=== PATIENT | female | born 1940 | race Caucasian/White ===

== ENCOUNTER → 2023-05-16 11:44 | Outpatient (REF) | payer OTHER, SELFPAY ==
[2023-05-16 12:51] LABS: % Basophils 0.6 % (0-2); % Eosinophils 4.7 % (0-6); % Immature Granulocytes 0.4 % (0-0.5); % Monocytes 9.1 % (1.7-9.3); % Neutrophils 62.2 % (42.2-75.2); Absolute Eosinophils 0.3 10^3/uL (0-0.7); Absolute Lymphocytes 1.6 10^3/uL (1.2-3.4); Absolute Monocytes 0.6 10^3/uL (0.1-0.6); Absolute Neutrophils 4.4 10^3/uL (1.4-6.5); Hematocrit 38.8 % (37.0-47.0); Hemoglobin 12.6 g/dL (12.0-16.0); Mean Corp Hgb Conc. 32.5 g/dL (33.0-37.0); Mean Corpuscular Hgb 30.4 pg (27.0-31.0); Mean Corpuscular Volume 93.5 fL (81.0-99.0); Mean Platelet Volume 10.1 fL (7.4-10.4); Nucleated Red Blood Cells % 0 %; Platelet Count 182 10^3/uL (130-400); Red Blood Cell Count 4.15 10^6/uL (4.20-5.40); Red Cell Dist. Width 17.1 % (11.5-14.5)
[2023-05-16 13:11] LABS: NT-proBNP 3040 pg/ml
[2023-05-16 13:24] LABS: ALT (SGPT) 23 U/L (0-35); AST (SGOT) 28 U/L (14-36); Albumin 3.9 g/dl (3.5-5.0); Alkaline Phosphatase 136 U/L (38-126); Blood Urea Nitrogen 61 mg/dl (7-17); Calcium 10.8 mg/dl (8.4-10.2); Carbon Dioxide 30 mmol/L (22-30); Chloride 98 mmol/L (98-107); Glucose 122 mg/dl (70-99); Iron 126 ug/dl (37-170); Potassium 4.9 mmol/L (3.5-5.1); Sodium 135 mmol/L (135-145); Total Bilirubin 0.7 mg/dl (0.2-1.3); Total Protein 6.5 g/dl (6.3-8.2); eGFR 22.81
[2023-05-16 13:34] LABS: Percent Saturation 37 % (20-50); Total Iron Binding Capacity 338 ug/dl (265-497)
[2023-05-16 13:53] LABS: Ferritin 24.1 ng/ml (11.1-264.0)
== END ==
LOC: REG 11:44
PROVIDERS: ATTENDING PHYSICIAN Internal Medicine Cardiovascular Disease; FAMILY PHYSICIAN Internal Medicine Geriatric Medicine
DX: I50.23 Acute on chronic systolic (congestive) heart failure (principal); I10 Essential (primary) hypertension; E78.2 Mixed hyperlipidemia; D64.9 Anemia, unspecified
CPT/HCPCS: 36415; 80053; 82728; 83540; 83550; 83880; 85025

== ENCOUNTER → 2023-06-04 12:57 | Outpatient (REF) | payer OTHER, SELFPAY ==
[2023-06-04 13:32] LABS: Ionized Calcium 1.29 mMOL/L (1.15-1.33)
[2023-06-04 13:46] LABS: Blood Urea Nitrogen 44 mg/dl (7-17); Calcium 10.5 mg/dl (8.4-10.2); Carbon Dioxide 32 mmol/L (22-30); Chloride 97 mmol/L (98-107); Glucose 159 mg/dl (70-99); Potassium 4.4 mmol/L (3.5-5.1); Sodium 137 mmol/L (135-145); eGFR 29.39
[2023-06-04 14:02] LABS: Vitamin D, 25-OH*** 54.4 ng/mL (30-80)
[2023-06-05 09:39] LABS: Intact PTH 126.6 pg/ml (13.6-85.8)
== END ==
LOC: REG 12:57
PROVIDERS: ATTENDING PHYSICIAN Internal Medicine Cardiovascular Disease; FAMILY PHYSICIAN Internal Medicine Geriatric Medicine
DX: I10 Essential (primary) hypertension (principal); E78.2 Mixed hyperlipidemia; Z95.0 Presence of cardiac pacemaker; I25.10 Atherosclerotic heart disease of native coronary artery without angina pectoris; E55.9 Vitamin D deficiency, unspecified; Z91.81 History of falling; E03.2 Hypothyroidism due to medicaments and other exogenous substances; N18.30 Chronic kidney disease, stage 3 unspecified; I50.20 Unspecified systolic (congestive) heart failure; Z13.89 Encounter for screening for other disorder; E83.52 Hypercalcemia
CPT/HCPCS: 36415; 80048; 82306; 82330; 83970

== ENCOUNTER → 2023-06-08 16:10 | Outpatient (REF) | payer OTHER, SELFPAY ==
[2023-06-08 18:38] LABS: 24 Hour Urine Total Volume 1900 ml
[2023-06-08 19:37] LABS: 24 Hour Urine Calcium 186.2 mg/day; Urine Calcium 9.8 mg/dl
== END ==
LOC: REG 16:10
PROVIDERS: ATTENDING PHYSICIAN Internal Medicine Geriatric Medicine
DX: E21.3 Hyperparathyroidism, unspecified (principal)
CPT/HCPCS: 81050; 82340

== ENCOUNTER → 2023-09-21 12:09 | Outpatient (REF) | payer OTHER, SELFPAY ==
[2023-09-21 14:01] LABS: ALT (SGPT) 19 U/L (0-35); AST (SGOT) 26 U/L (14-36); Albumin 4.3 g/dl (3.5-5.0); Alkaline Phosphatase 173 U/L (38-126); Blood Urea Nitrogen 44 mg/dl (7-17); Calcium 10.9 mg/dl (8.4-10.2); Carbon Dioxide 29 mmol/L (22-30); Chloride 101 mmol/L (98-107); Glucose 117 mg/dl (70-99); Potassium 4.5 mmol/L (3.5-5.1); Sodium 139 mmol/L (135-145); Total Bilirubin 0.6 mg/dl (0.2-1.3); eGFR 31.41
[2023-09-21 14:03] LABS: NT-proBNP 5010 pg/ml
[2023-09-21 14:17] LABS: Free T4 1.52 ng/dl (0.78-2.19)
[2023-09-22 11:59] LABS: Thyroglobulin Antibodies <0.9 IU/mL (0.0-4.0); Thyroid Peroxidase Ab (TPO) 0.7 IU/mL (0.0-9.0)
== END ==
LOC: REG 12:09
PROVIDERS: ATTENDING PHYSICIAN Internal Medicine Cardiovascular Disease; FAMILY PHYSICIAN Internal Medicine Geriatric Medicine
DX: I10 Essential (primary) hypertension (principal); E78.2 Mixed hyperlipidemia; Z95.0 Presence of cardiac pacemaker; I49.3 Ventricular premature depolarization; E55.9 Vitamin D deficiency, unspecified; Z91.81 History of falling; E03.2 Hypothyroidism due to medicaments and other exogenous substances; N18.30 Chronic kidney disease, stage 3 unspecified; I50.20 Unspecified systolic (congestive) heart failure; E83.52 Hypercalcemia; E05.90 Thyrotoxicosis, unspecified without thyrotoxic crisis or storm; R06.09 Other forms of dyspnea; I50.23 Acute on chronic systolic (congestive) heart failure
CPT/HCPCS: 36415; 80053; 83880; 84439; 84443; 86376; 86800

== ENCOUNTER → 2023-10-01 12:29 | Outpatient (REF) | payer OTHER, SELFPAY ==
[2023-10-01 13:53] LABS: Blood Urea Nitrogen 43 mg/dl (7-17); Calcium 10.3 mg/dl (8.4-10.2); Carbon Dioxide 31 mmol/L (22-30); Chloride 101 mmol/L (98-107); Glucose 157 mg/dl (70-99); Potassium 4.6 mmol/L (3.5-5.1); Sodium 140 mmol/L (135-145); eGFR 36.87
[2023-10-01 13:57] LABS: NT-proBNP 4800 pg/ml
== END ==
LOC: REG 12:29
PROVIDERS: ATTENDING PHYSICIAN Internal Medicine Cardiovascular Disease; FAMILY PHYSICIAN Internal Medicine Geriatric Medicine
DX: I50.22 Chronic systolic (congestive) heart failure (principal); I10 Essential (primary) hypertension
CPT/HCPCS: 36415; 80048; 83880

== ENCOUNTER → 2023-10-31 13:24 | Outpatient (REF) | payer OTHER, SELFPAY | LOC: RAD 13:24 | PROVIDERS: ATTENDING PHYSICIAN Internal Medicine Endocrinology, Diabetes & Metabolism; FAMILY PHYSICIAN Internal Medicine Geriatric Medicine | DX: Z13.820 Encounter for screening for osteoporosis (principal); Z78.0 Asymptomatic menopausal state; M85.88 Other specified disorders of bone density and structure, other site | CPT/HCPCS: 77080 ==

== ENCOUNTER → 2023-11-06 08:42 | Outpatient (REF) | payer OTHER, SELFPAY | LOC: RAD 08:42 | PROVIDERS: ATTENDING PHYSICIAN Internal Medicine Endocrinology, Diabetes & Metabolism; FAMILY PHYSICIAN Internal Medicine Geriatric Medicine; REFERRING PHYSICIAN Internal Medicine Cardiovascular Disease | DX: E21.0 Primary hyperparathyroidism (principal) | CPT/HCPCS: 78071; A9500 ==

== ENCOUNTER → 2023-11-12 10:40 | Outpatient (REF) | payer OTHER, SELFPAY ==
[2023-11-12 12:17] LABS: Vitamin D, 25-OH*** 63.5 ng/mL (30-80)
[2023-11-12 13:44] LABS: ALT (SGPT) 22 U/L (0-35); AST (SGOT) 30 U/L (14-36); Albumin 4.2 g/dl (3.5-5.0); Alkaline Phosphatase 149 U/L (38-126); Blood Urea Nitrogen 43 mg/dl (7-17); Calcium 10.4 mg/dl (8.4-10.2); Carbon Dioxide 30 mmol/L (22-30); Chloride 102 mmol/L (98-107); Glucose 124 mg/dl (70-99); Potassium 4.4 mmol/L (3.5-5.1); Sodium 138 mmol/L (135-145); Total Bilirubin 0.6 mg/dl (0.2-1.3); Total Protein 6.6 g/dl (6.3-8.2); eGFR 36.87
[2023-11-13 16:14] LABS: Intact PTH 47.6 pg/ml (13.6-85.8)
== END ==
LOC: REG 10:40
PROVIDERS: ATTENDING PHYSICIAN Internal Medicine Endocrinology, Diabetes & Metabolism; FAMILY PHYSICIAN Internal Medicine Geriatric Medicine
DX: E21.0 Primary hyperparathyroidism (principal); R79.89 Other specified abnormal findings of blood chemistry
CPT/HCPCS: 36415; 80053; 82306; 82330; 83970

== ENCOUNTER → 2023-11-20 10:53 | Outpatient (REF) | payer OTHER, SELFPAY | LOC: RAD 10:53 | PROVIDERS: ATTENDING PHYSICIAN Internal Medicine Endocrinology, Diabetes & Metabolism; FAMILY PHYSICIAN Internal Medicine Geriatric Medicine; REFERRING PHYSICIAN Internal Medicine Cardiovascular Disease | DX: E21.0 Primary hyperparathyroidism (principal) | CPT/HCPCS: 76536 ==

== ENCOUNTER → 2023-12-21 12:57 | Outpatient (REF) | payer OTHER, SELFPAY | LOC: RAD 12:57 | PROVIDERS: ATTENDING PHYSICIAN Nurse Practitioner Family; FAMILY PHYSICIAN Internal Medicine Geriatric Medicine | DX: M79.605 Pain in left leg (principal); W19.XXXA Unspecified fall, initial encounter | CPT/HCPCS: 73590; 73610 ==

== ENCOUNTER → 2024-01-21 12:55 | Outpatient (REF) | payer OTHER, SELFPAY | LOC: RCS 12:55 | PROVIDERS: ATTENDING PHYSICIAN Internal Medicine Cardiovascular Disease; FAMILY PHYSICIAN Internal Medicine Geriatric Medicine | DX: I50.20 Unspecified systolic (congestive) heart failure (principal) | CPT/HCPCS: 93306 ==

== ENCOUNTER → 2024-02-05 13:56 | Outpatient (REF) | payer OTHER, SELFPAY ==
[2024-02-05 17:07] LABS: NT-proBNP 3060 pg/ml
[2024-02-05 17:16] LABS: Blood Urea Nitrogen 60 mg/dl (7-17); Carbon Dioxide 26 mmol/L (22-30); Chloride 100 mmol/L (98-107); Glucose 149 mg/dl (70-99); HDL Cholesterol 66 mg/dl; LDL Cholesterol, Calculated 39 mg/dl; Potassium 4.8 mmol/L (3.5-5.1); Sodium 141 mmol/L (135-145); Total Cholesterol 174 mg/dl (50-199); Triglyceride 347 mg/dl (10-149); Very Low Density Lipoprotein 69 mg/dl (0-30); eGFR 33.94
== END ==
LOC: REG 13:56
PROVIDERS: ATTENDING PHYSICIAN Internal Medicine Cardiovascular Disease; FAMILY PHYSICIAN Internal Medicine Geriatric Medicine
DX: I50.22 Chronic systolic (congestive) heart failure (principal); E78.2 Mixed hyperlipidemia
CPT/HCPCS: 36415; 80048; 80061; 83880

== ENCOUNTER → 2024-02-22 11:26 | Outpatient (REF) | payer OTHER, SELFPAY ==
[2024-02-22 13:55] LABS: NT-proBNP 4210 pg/ml
[2024-02-22 14:00] LABS: Blood Urea Nitrogen 35 mg/dl (7-17); Calcium 10.6 mg/dl (8.4-10.2); Carbon Dioxide 32 mmol/L (22-30); Chloride 99 mmol/L (98-107); Glucose 98 mg/dl (70-99); Potassium 4.8 mmol/L (3.5-5.1); Sodium 142 mmol/L (135-145); eGFR 33.94
== END ==
LOC: REG 11:26
PROVIDERS: ATTENDING PHYSICIAN Internal Medicine Cardiovascular Disease; FAMILY PHYSICIAN Internal Medicine Geriatric Medicine
DX: I10 Essential (primary) hypertension (principal); I25.5 Ischemic cardiomyopathy; I50.20 Unspecified systolic (congestive) heart failure
CPT/HCPCS: 36415; 80048; 83880

== ENCOUNTER → 2024-03-25 14:38 | Outpatient (REF) | payer OTHER, SELFPAY ==
[2024-03-25 16:16] LABS: Blood Urea Nitrogen 56 mg/dl (7-17); Calcium 10.5 mg/dl (8.4-10.2); Carbon Dioxide 33 mmol/L (22-30); Chloride 98 mmol/L (98-107); Glucose 103 mg/dl (70-99); Potassium 4.9 mmol/L (3.5-5.1); Sodium 139 mmol/L (135-145); eGFR 31.41
== END ==
LOC: REG 14:38
PROVIDERS: ATTENDING PHYSICIAN Internal Medicine Cardiovascular Disease; FAMILY PHYSICIAN Internal Medicine Geriatric Medicine
DX: I73.9 Peripheral vascular disease, unspecified (principal)
CPT/HCPCS: 36415; 80048

== ENCOUNTER → 2024-04-07 10:25 | Outpatient (REF) | payer OTHER, SELFPAY | LOC: RAD 10:25 | PROVIDERS: ATTENDING PHYSICIAN Internal Medicine Geriatric Medicine | DX: N28.1 Cyst of kidney, acquired (principal) | CPT/HCPCS: 76770 ==

== ENCOUNTER → 2024-04-11 14:53 | Outpatient (REF) | payer OTHER, SELFPAY | LOC: RAD 14:53 | PROVIDERS: ATTENDING PHYSICIAN Internal Medicine Cardiovascular Disease; FAMILY PHYSICIAN Internal Medicine Geriatric Medicine | DX: I73.9 Peripheral vascular disease, unspecified (principal) | CPT/HCPCS: 93922; 93925 ==

== ENCOUNTER → 2024-04-17 08:00 | Outpatient (REF) | payer OTHER, SELFPAY | LOC: WOUND 08:00 | PROVIDERS: ATTENDING PHYSICIAN Surgery; FAMILY PHYSICIAN Internal Medicine Geriatric Medicine | DX: L97.322 Non-pressure chronic ulcer of left ankle with fat layer exposed (principal); I77.6 Arteritis, unspecified; I25.5 Ischemic cardiomyopathy | CPT/HCPCS: 88305; 11104; 11105; 99204 ==

== ENCOUNTER → 2024-04-17 09:00 | Outpatient (REF) | payer OTHER, SELFPAY ==
[2024-04-17 10:44] LABS: Vitamin D, 25-OH*** 40.3 ng/mL (30-80)
[2024-04-17 10:51] LABS: ALT (SGPT) 26 U/L (0-35); AST (SGOT) 32 U/L (14-36); Albumin 4.2 g/dl (3.5-5.0); Alkaline Phosphatase 184 U/L (38-126); Blood Urea Nitrogen 53 mg/dl (7-17); Calcium 10.1 mg/dl (8.4-10.2); Carbon Dioxide 31 mmol/L (22-30); Chloride 98 mmol/L (98-107); Glucose 113 mg/dl (70-99); Potassium 4.3 mmol/L (3.5-5.1); Sodium 137 mmol/L (135-145); Total Bilirubin 0.5 mg/dl (0.2-1.3); Total Protein 6.8 g/dl (6.3-8.2); eGFR 29.21
[2024-04-18 15:16] LABS: Intact PTH 12.8 pg/ml (13.6-85.8)
== END ==
LOC: REG 09:00
PROVIDERS: ATTENDING PHYSICIAN Internal Medicine Endocrinology, Diabetes & Metabolism; FAMILY PHYSICIAN Internal Medicine Geriatric Medicine
DX: E21.0 Primary hyperparathyroidism (principal); R79.89 Other specified abnormal findings of blood chemistry
CPT/HCPCS: 36415; 80053; 82306; 83970

== ENCOUNTER → 2024-04-24 13:16 | Outpatient (REF) | payer OTHER, SELFPAY | LOC: WOUND 13:16 | PROVIDERS: ATTENDING PHYSICIAN Surgery; FAMILY PHYSICIAN Internal Medicine Geriatric Medicine | DX: L97.322 Non-pressure chronic ulcer of left ankle with fat layer exposed (principal); I77.6 Arteritis, unspecified; I25.5 Ischemic cardiomyopathy; L88 Pyoderma gangrenosum | CPT/HCPCS: 11042 ==

== ENCOUNTER → 2024-05-13 14:11 | Outpatient (REF) | payer OTHER, SELFPAY | LOC: WOUND 14:11 | PROVIDERS: ATTENDING PHYSICIAN Surgery; FAMILY PHYSICIAN Internal Medicine Geriatric Medicine | DX: L97.322 Non-pressure chronic ulcer of left ankle with fat layer exposed (principal); L03.116 Cellulitis of left lower limb; I77.6 Arteritis, unspecified; I25.5 Ischemic cardiomyopathy; L88 Pyoderma gangrenosum | CPT/HCPCS: 87070; 87077; 87186; 87205; 99213 ==

== ENCOUNTER → 2024-05-13 14:45 | Outpatient (REF) | payer OTHER, SELFPAY | LOC: CLAB 14:45 | PROVIDERS: ATTENDING PHYSICIAN Surgery | DX: L03.116 Cellulitis of left lower limb (principal); L97.322 Non-pressure chronic ulcer of left ankle with fat layer exposed | CPT/HCPCS: 87070; 87077; 87186; 87205 ==

== ENCOUNTER → 2024-05-20 13:46 | Outpatient (REF) | payer OTHER, SELFPAY | LOC: WOUND 13:46 | PROVIDERS: ATTENDING PHYSICIAN Surgery; FAMILY PHYSICIAN Internal Medicine Geriatric Medicine | DX: L97.322 Non-pressure chronic ulcer of left ankle with fat layer exposed (principal); L03.116 Cellulitis of left lower limb; I25.5 Ischemic cardiomyopathy; L88 Pyoderma gangrenosum | CPT/HCPCS: 11042 ==

== ENCOUNTER → 2024-05-27 13:50 | Outpatient (REF) | payer OTHER, SELFPAY | LOC: WOUND 13:50 | PROVIDERS: ATTENDING PHYSICIAN Surgery; FAMILY PHYSICIAN Internal Medicine Geriatric Medicine | DX: L97.322 Non-pressure chronic ulcer of left ankle with fat layer exposed (principal); L03.116 Cellulitis of left lower limb; I25.5 Ischemic cardiomyopathy; L88 Pyoderma gangrenosum | CPT/HCPCS: 99213 ==

== ENCOUNTER → 2024-06-03 14:15 | Outpatient (REF) | payer OTHER, SELFPAY | LOC: WOUND 14:15 | PROVIDERS: ATTENDING PHYSICIAN Surgery; FAMILY PHYSICIAN Internal Medicine Geriatric Medicine | DX: L97.322 Non-pressure chronic ulcer of left ankle with fat layer exposed (principal); L03.116 Cellulitis of left lower limb; I25.5 Ischemic cardiomyopathy; L88 Pyoderma gangrenosum | CPT/HCPCS: 11042 ==

== ENCOUNTER → 2024-06-17 14:41 | Outpatient (REF) | payer OTHER, SELFPAY | LOC: WOUND 14:41 | PROVIDERS: ATTENDING PHYSICIAN Surgery; FAMILY PHYSICIAN Internal Medicine Geriatric Medicine | DX: L97.322 Non-pressure chronic ulcer of left ankle with fat layer exposed (principal); I25.5 Ischemic cardiomyopathy; G90.522 Complex regional pain syndrome I of left lower limb | CPT/HCPCS: 11042 ==

== ENCOUNTER → 2024-06-24 14:09 | Outpatient (REF) | payer OTHER, SELFPAY | LOC: WOUND 14:09 | PROVIDERS: ATTENDING PHYSICIAN Surgery; FAMILY PHYSICIAN Internal Medicine Geriatric Medicine | DX: L97.322 Non-pressure chronic ulcer of left ankle with fat layer exposed (principal); G90.522 Complex regional pain syndrome I of left lower limb; I25.5 Ischemic cardiomyopathy | CPT/HCPCS: 11042 ==

== ENCOUNTER → 2024-07-01 14:09 | Outpatient (REF) | payer OTHER, SELFPAY | LOC: WOUND 14:09 | PROVIDERS: ATTENDING PHYSICIAN Surgery; FAMILY PHYSICIAN Internal Medicine Geriatric Medicine | DX: L97.322 Non-pressure chronic ulcer of left ankle with fat layer exposed (principal); G90.522 Complex regional pain syndrome I of left lower limb; I25.5 Ischemic cardiomyopathy | CPT/HCPCS: 11042 ==

== ENCOUNTER → 2024-07-07 14:13 | Outpatient (REF) | payer OTHER, SELFPAY | LOC: WOUND 14:13 | PROVIDERS: ATTENDING PHYSICIAN Surgery; FAMILY PHYSICIAN Internal Medicine Geriatric Medicine | DX: L97.322 Non-pressure chronic ulcer of left ankle with fat layer exposed (principal); G90.522 Complex regional pain syndrome I of left lower limb; I25.5 Ischemic cardiomyopathy | CPT/HCPCS: 11042 ==

== ENCOUNTER → 2024-07-14 13:47 | Outpatient (REF) | payer OTHER, SELFPAY | LOC: WOUND 13:47 | PROVIDERS: ATTENDING PHYSICIAN Surgery; FAMILY PHYSICIAN Internal Medicine Geriatric Medicine | DX: L97.322 Non-pressure chronic ulcer of left ankle with fat layer exposed (principal); G90.522 Complex regional pain syndrome I of left lower limb; I25.5 Ischemic cardiomyopathy | CPT/HCPCS: 11042 ==

== ENCOUNTER → 2024-07-18 10:11 | Outpatient (REF) | payer OTHER, SELFPAY | LOC: WOUND 10:11 | PROVIDERS: ATTENDING PHYSICIAN Surgery; FAMILY PHYSICIAN Internal Medicine Geriatric Medicine | DX: L97.322 Non-pressure chronic ulcer of left ankle with fat layer exposed (principal); G90.522 Complex regional pain syndrome I of left lower limb; I25.5 Ischemic cardiomyopathy | CPT/HCPCS: 29581 ==

== ENCOUNTER → 2024-07-21 14:01 | Outpatient (REF) | payer OTHER, SELFPAY | LOC: WOUND 14:01 | PROVIDERS: ATTENDING PHYSICIAN Surgery; FAMILY PHYSICIAN Internal Medicine Geriatric Medicine | DX: L97.322 Non-pressure chronic ulcer of left ankle with fat layer exposed (principal); G90.522 Complex regional pain syndrome I of left lower limb; I25.5 Ischemic cardiomyopathy; I87.2 Venous insufficiency (chronic) (peripheral) | CPT/HCPCS: 11042 ==

== ENCOUNTER → 2024-07-28 10:42 | Outpatient (REF) | payer OTHER, SELFPAY | LOC: WOUND 10:42 | PROVIDERS: ATTENDING PHYSICIAN Surgery; FAMILY PHYSICIAN Internal Medicine Geriatric Medicine | DX: L97.322 Non-pressure chronic ulcer of left ankle with fat layer exposed (principal); G90.522 Complex regional pain syndrome I of left lower limb; I25.5 Ischemic cardiomyopathy; I87.2 Venous insufficiency (chronic) (peripheral) | CPT/HCPCS: 11042 ==

== ENCOUNTER → 2024-08-01 12:55 | Outpatient (REF) | payer OTHER, SELFPAY | LOC: WOUND 12:55 | PROVIDERS: ATTENDING PHYSICIAN Surgery; FAMILY PHYSICIAN Internal Medicine Geriatric Medicine | DX: L97.322 Non-pressure chronic ulcer of left ankle with fat layer exposed (principal); G90.522 Complex regional pain syndrome I of left lower limb; I25.5 Ischemic cardiomyopathy; I87.2 Venous insufficiency (chronic) (peripheral) | CPT/HCPCS: 99212 ==

== ENCOUNTER → 2024-08-01 13:52 | Outpatient (REF) | payer OTHER, SELFPAY | LOC: RAD 13:52 | PROVIDERS: ATTENDING PHYSICIAN Surgery; FAMILY PHYSICIAN Internal Medicine Geriatric Medicine | DX: L97.322 Non-pressure chronic ulcer of left ankle with fat layer exposed (principal) | CPT/HCPCS: 93971 ==

== ENCOUNTER → 2024-08-08 10:15 | Outpatient (REF) | payer OTHER, SELFPAY | LOC: WOUND 10:15 | PROVIDERS: ATTENDING PHYSICIAN Surgery; FAMILY PHYSICIAN Internal Medicine Geriatric Medicine | DX: L97.322 Non-pressure chronic ulcer of left ankle with fat layer exposed (principal); G90.522 Complex regional pain syndrome I of left lower limb; I25.5 Ischemic cardiomyopathy; I87.2 Venous insufficiency (chronic) (peripheral) | CPT/HCPCS: 29580 ==

== ENCOUNTER → 2024-08-11 14:46 | Outpatient (REF) | payer OTHER, SELFPAY | LOC: WOUND 14:46 | PROVIDERS: ATTENDING PHYSICIAN Surgery; FAMILY PHYSICIAN Internal Medicine Geriatric Medicine | DX: L97.322 Non-pressure chronic ulcer of left ankle with fat layer exposed (principal); G90.522 Complex regional pain syndrome I of left lower limb; I25.5 Ischemic cardiomyopathy; I87.2 Venous insufficiency (chronic) (peripheral) | CPT/HCPCS: 11042 ==

== ENCOUNTER → 2024-08-15 13:42 | Outpatient (REF) | payer OTHER, SELFPAY | LOC: WOUND 13:42 | PROVIDERS: ATTENDING PHYSICIAN Surgery; FAMILY PHYSICIAN Internal Medicine Geriatric Medicine | DX: L97.322 Non-pressure chronic ulcer of left ankle with fat layer exposed (principal); G90.522 Complex regional pain syndrome I of left lower limb; I25.5 Ischemic cardiomyopathy; I87.2 Venous insufficiency (chronic) (peripheral) | CPT/HCPCS: 29580 ==

== ENCOUNTER → 2024-08-19 09:39 | Outpatient (REF) | payer OTHER, SELFPAY | LOC: WOUND 09:39 | PROVIDERS: ATTENDING PHYSICIAN Surgery; FAMILY PHYSICIAN Internal Medicine Geriatric Medicine | DX: L97.322 Non-pressure chronic ulcer of left ankle with fat layer exposed (principal); G90.522 Complex regional pain syndrome I of left lower limb; I25.5 Ischemic cardiomyopathy; I87.2 Venous insufficiency (chronic) (peripheral) | CPT/HCPCS: 11042 ==

== ENCOUNTER → 2024-08-22 10:09 | Outpatient (REF) | payer OTHER, SELFPAY | LOC: WOUND 10:09 | PROVIDERS: ATTENDING PHYSICIAN Surgery; FAMILY PHYSICIAN Internal Medicine Geriatric Medicine | DX: L97.322 Non-pressure chronic ulcer of left ankle with fat layer exposed (principal); G90.522 Complex regional pain syndrome I of left lower limb; I25.5 Ischemic cardiomyopathy; I87.2 Venous insufficiency (chronic) (peripheral) | CPT/HCPCS: 29580 ==

== ENCOUNTER → 2024-08-25 14:10 | Outpatient (REF) | payer OTHER, SELFPAY | LOC: WOUND 14:10 | PROVIDERS: ATTENDING PHYSICIAN Surgery; FAMILY PHYSICIAN Internal Medicine Geriatric Medicine | DX: L97.322 Non-pressure chronic ulcer of left ankle with fat layer exposed (principal); G90.522 Complex regional pain syndrome I of left lower limb; I25.5 Ischemic cardiomyopathy; I87.2 Venous insufficiency (chronic) (peripheral) | CPT/HCPCS: 11042 ==

== ENCOUNTER → 2024-08-29 14:15 | Outpatient (REF) | payer OTHER, SELFPAY | LOC: WOUND 14:15 | PROVIDERS: ATTENDING PHYSICIAN Surgery; FAMILY PHYSICIAN Internal Medicine Geriatric Medicine | DX: L97.322 Non-pressure chronic ulcer of left ankle with fat layer exposed (principal); G90.522 Complex regional pain syndrome I of left lower limb; I25.5 Ischemic cardiomyopathy; I87.2 Venous insufficiency (chronic) (peripheral) | CPT/HCPCS: 29580 ==

== ENCOUNTER → 2024-09-05 09:47 | Outpatient (REF) | payer OTHER, SELFPAY | LOC: WOUND 09:47 | PROVIDERS: ATTENDING PHYSICIAN Surgery; FAMILY PHYSICIAN Internal Medicine Geriatric Medicine | DX: L97.322 Non-pressure chronic ulcer of left ankle with fat layer exposed (principal); G90.522 Complex regional pain syndrome I of left lower limb; I25.5 Ischemic cardiomyopathy; I87.2 Venous insufficiency (chronic) (peripheral) | CPT/HCPCS: 11042 ==

== ENCOUNTER → 2024-09-12 13:46 | Outpatient (REF) | payer OTHER, SELFPAY | LOC: WOUND 13:46 | PROVIDERS: ATTENDING PHYSICIAN Surgery; FAMILY PHYSICIAN Internal Medicine Geriatric Medicine | DX: L97.322 Non-pressure chronic ulcer of left ankle with fat layer exposed (principal); G90.522 Complex regional pain syndrome I of left lower limb; I25.5 Ischemic cardiomyopathy; I87.2 Venous insufficiency (chronic) (peripheral) | CPT/HCPCS: 11042 ==

== ENCOUNTER → 2024-09-19 13:21 | Outpatient (REF) | payer OTHER, SELFPAY | LOC: WOUND 13:21 | PROVIDERS: ATTENDING PHYSICIAN Surgery; FAMILY PHYSICIAN Internal Medicine Geriatric Medicine | DX: L97.322 Non-pressure chronic ulcer of left ankle with fat layer exposed (principal); G90.522 Complex regional pain syndrome I of left lower limb; I25.5 Ischemic cardiomyopathy; I87.2 Venous insufficiency (chronic) (peripheral) | CPT/HCPCS: 11042 ==

== ENCOUNTER → 2024-09-26 11:17 | Outpatient (REF) | payer OTHER, SELFPAY | LOC: WOUND 11:17 | PROVIDERS: ATTENDING PHYSICIAN Surgery; FAMILY PHYSICIAN Internal Medicine Geriatric Medicine | DX: L97.322 Non-pressure chronic ulcer of left ankle with fat layer exposed (principal); G90.522 Complex regional pain syndrome I of left lower limb; I25.5 Ischemic cardiomyopathy; I87.2 Venous insufficiency (chronic) (peripheral) | CPT/HCPCS: 99213 ==

== ENCOUNTER → 2024-10-16 14:11 | Outpatient (REF) | payer OTHER, SELFPAY | LOC: WOUND 14:11 | PROVIDERS: ATTENDING PHYSICIAN Surgery; FAMILY PHYSICIAN Internal Medicine Geriatric Medicine | DX: L97.322 Non-pressure chronic ulcer of left ankle with fat layer exposed (principal); G90.522 Complex regional pain syndrome I of left lower limb; I87.2 Venous insufficiency (chronic) (peripheral); I25.5 Ischemic cardiomyopathy | CPT/HCPCS: 11042; 97597 ==

== ENCOUNTER → 2024-10-22 08:14 | Outpatient (REF) | payer OTHER, SELFPAY | LOC: HWEVLT 08:14 | PROVIDERS: ATTENDING PHYSICIAN Radiology Vascular & Interventional Radiology | DX: I83.892 Varicose veins of left lower extremity with other complications (principal) | CPT/HCPCS: 36478 ==

== ENCOUNTER → 2024-11-05 08:56 | Outpatient (REF) | payer OTHER, SELFPAY | LOC: HWEVLT 08:56 | PROVIDERS: ATTENDING PHYSICIAN Radiology Vascular & Interventional Radiology | DX: I83.892 Varicose veins of left lower extremity with other complications (principal) | CPT/HCPCS: 93971 ==

== ENCOUNTER → 2024-11-06 13:11 | Outpatient (REF) | payer OTHER, SELFPAY | LOC: WOUND 13:11 | PROVIDERS: ATTENDING PHYSICIAN Surgery; FAMILY PHYSICIAN Internal Medicine Geriatric Medicine | DX: L97.322 Non-pressure chronic ulcer of left ankle with fat layer exposed (principal); G90.522 Complex regional pain syndrome I of left lower limb; I87.2 Venous insufficiency (chronic) (peripheral); I25.5 Ischemic cardiomyopathy | CPT/HCPCS: 99213 ==

== ENCOUNTER → 2024-11-14 13:42 | Outpatient (REF) | payer OTHER, SELFPAY | LOC: WOUND 13:42 | PROVIDERS: ATTENDING PHYSICIAN Surgery; FAMILY PHYSICIAN Internal Medicine Geriatric Medicine | DX: L97.322 Non-pressure chronic ulcer of left ankle with fat layer exposed (principal); G90.522 Complex regional pain syndrome I of left lower limb; I87.2 Venous insufficiency (chronic) (peripheral); I25.5 Ischemic cardiomyopathy | CPT/HCPCS: 99212 ==

== ENCOUNTER → 2024-11-21 09:03 | Outpatient (REF) | payer OTHER, SELFPAY ==
[2024-11-21 11:35] LABS: Hematocrit 41.9 % (37.0-47.0); Hemoglobin 12.7 g/dL (12.0-16.0); Mean Corp Hgb Conc. 30.3 g/dL (33.0-37.0); Mean Corpuscular Volume 99.8 fL (81.0-99.0); Nucleated Red Blood Cells % 0 %; Platelet Count 172 10^3/uL (130-400); Red Cell Dist. Width 13.7 % (11.5-14.5)
[2024-11-21 11:45] LABS: Urine Character Clear (Clear)
[2024-11-21 12:02] LABS: Urine Red Blood Cell 0-2 /HPF (0-2)
[2024-11-21 12:50] LABS: ALT (SGPT) 18 U/L (0-35); AST (SGOT) 23 U/L (14-36); Albumin 4.5 g/dl (3.5-5.0); Alkaline Phosphatase 165 U/L (38-126); Blood Urea Nitrogen 38 mg/dl (7-17); Calcium 10.1 mg/dl (8.4-10.2); Carbon Dioxide 31 mmol/L (22-30); Chloride 100 mmol/L (98-107); Glucose 106 mg/dl (70-99); HDL Cholesterol 63 mg/dl; LDL Cholesterol, Calculated 49 mg/dl; Potassium 4.8 mmol/L (3.5-5.1); Sodium 137 mmol/L (135-145); Total Protein 7.1 g/dl (6.3-8.2); Very Low Density Lipoprotein 41 mg/dl (0-30); eGFR 31.21
[2024-11-21 14:19] LABS: Vitamin D, 25-OH*** 50.7 ng/mL (30-80)
== END ==
LOC: RCS 09:03
PROVIDERS: ATTENDING PHYSICIAN Internal Medicine Cardiovascular Disease; FAMILY PHYSICIAN Internal Medicine Geriatric Medicine
DX: R06.09 Other forms of dyspnea (principal); I10 Essential (primary) hypertension; E78.2 Mixed hyperlipidemia; I47.20 Ventricular tachycardia, unspecified; N18.30 Chronic kidney disease, stage 3 unspecified; Z95.0 Presence of cardiac pacemaker; I49.3 Ventricular premature depolarization; E55.9 Vitamin D deficiency, unspecified; Z91.81 History of falling; E03.2 Hypothyroidism due to medicaments and other exogenous substances; Z13.89 Encounter for screening for other disorder; I50.20 Unspecified systolic (congestive) heart failure; E83.52 Hypercalcemia; G25.81 Restless legs syndrome; I25.10 Atherosclerotic heart disease of native coronary artery without angina pectoris
CPT/HCPCS: 36415; 80053; 80061; 81003; 81015; 82306; 83880; 85025; 93306

== ENCOUNTER → 2025-01-12 14:06 | Outpatient (REF) | payer OTHER, SELFPAY ==
[2025-01-12 15:06] LABS: ALT (SGPT) 20 U/L (0-35); AST (SGOT) 25 U/L (14-36); Albumin 4.5 g/dl (3.5-5.0); Alkaline Phosphatase 131 U/L (38-126); Blood Urea Nitrogen 41 mg/dl (7-17); Calcium 10.4 mg/dl (8.4-10.2); Carbon Dioxide 31 mmol/L (22-30); Chloride 102 mmol/L (98-107); Glucose 115 mg/dl (70-99); Potassium 4.8 mmol/L (3.5-5.1); Sodium 138 mmol/L (135-145); Total Protein 7.1 g/dl (6.3-8.2); eGFR 33.73
== END ==
LOC: REG 14:06
PROVIDERS: ATTENDING PHYSICIAN Internal Medicine Endocrinology, Diabetes & Metabolism; FAMILY PHYSICIAN Internal Medicine Geriatric Medicine
DX: E21.0 Primary hyperparathyroidism (principal)
CPT/HCPCS: 36415; 80053; 83970

== ENCOUNTER → 2025-02-27 13:47 | Outpatient (REF) | payer OTHER, MEDICARE, SELFPAY ==
[2025-02-27 14:56] LABS: Hematocrit 43.1 % (37.0-47.0); Hemoglobin 13.3 g/dL (12.0-16.0); Mean Corp Hgb Conc. 30.9 g/dL (33.0-37.0); Mean Corpuscular Volume 100.7 fL (81.0-99.0); Nucleated Red Blood Cells % 0 %; Platelet Count 164 10^3/uL (130-400); Red Cell Dist. Width 14.2 % (11.5-14.5)
[2025-02-27 15:27] LABS: ALT (SGPT) 24 U/L (0-35); AST (SGOT) 25 U/L (14-36); Albumin 4.5 g/dl (3.5-5.0); Alkaline Phosphatase 144 U/L (38-126); Blood Urea Nitrogen 46 mg/dl (7-17); Calcium 10.5 mg/dl (8.4-10.2); Carbon Dioxide 33 mmol/L (22-30); Chloride 99 mmol/L (98-107); Glucose 108 mg/dl (70-99); Potassium 4.4 mmol/L (3.5-5.1); Sodium 137 mmol/L (135-145); Total Protein 7.4 g/dl (6.3-8.2); eGFR 33.73
== END ==
LOC: REG 13:47
PROVIDERS: ATTENDING PHYSICIAN Internal Medicine Interventional Cardiology; FAMILY PHYSICIAN Internal Medicine Geriatric Medicine
DX: E78.2 Mixed hyperlipidemia (principal); I25.10 Atherosclerotic heart disease of native coronary artery without angina pectoris
CPT/HCPCS: 36415; 80053; 85025

== ENCOUNTER 2025-03-06 07:22 | Day surgery (SDC) | payer OTHER, SELFPAY ==
[2025-03-06] VITALS (9 sets, daily range): BP systolic 110–150; BP diastolic 51–78; BMI 31.2
[2025-03-06] MEDS: NSS 240 ML IV (08:36)
--- NOTE | 2025-03-06 13:44 | CONSULT.STRU ---
Consultation
-
Date/Time Consultation Requested: 03/06/2025 1130
Date/Time Consultation Performed: 03/06/2025 1200
Requesting Provider: Joaquin Hopkins
Performing Provider: CLAUDIA Zamora
Reason for Consultation: Aortic Stenosis/ TAVR evaluation
Patient History
Physicians
Family Physician: Kobe Rodriguez
Outpatient Slubber Frame Changer: Audelia Cartagena
Primary Slubber Frame Changer: Audelia Cartagena
History of Present Illness
Mrs. Bundy is a very pleasant 84yo female with known history of aortic stenosis, CAD(prior PCI) and HF with reduced EF. She has noted worsening dyspnea on exertion.� She is unable to do some of her daily activities such as showering and dressing
without feeling dyspneic.� It appears that she may have low gradient severe aortic valve stenosis by symptomatology, exam and recent echocardiogram.�Her echocardiogram on 11/21/2024 was notable for LVEF of 29% (no change in EF from prior), PG/MG:
24.8/13, JUAN: 0.75, mild AI, mod. MR, mild TR.� She has gained some weight but denies edema. She has known renal insufficiency. She denies palpitations, PND or orthopnea. She does have an occasional 'chest ache', not related to activity and self
limiting. Cardiac cath today demonstrated elevated right and left ventricular filling pressures with significantly reduced LVEF consistent with known dilated cardiomyopathy. Stable coronary anatomy with widely patent mid LAD stent. Widely patent
iliofemoral vessels.
Reviewed the pathophysiology of aortic stenosis with the patient and her son. Explained the treatment options of SAVR and TAVR. Explained the TAVR evaluation process including follow up BMP, CT TAVR scan, CT surgery consult and Heart Team
discussion. Provided with script for BMP next week, script and appointment for CT TAVR chest only with IV hydration, Consult appointment with Dr. Lam and a copy of the TAVR education booklet with contact information. Allowed for and answered
questions.
Past Medical History
Past Medical History: Angina, Arrhythmias (ventricular tachycardia, PVCs), CAD, CHF ([facility] Class III), HARRELL, GERD, HTN, Hypercholesterolemia, Renal Insufficiency, Valvular Disease (mod-severe , , mild AI, mod, MR, mild TR) and Other (PVD, renal cyst,
hypercalcemia, h/o TB)
Past Surgical History
Past Surgical History: Hysterectomy (BSO), PCI/Stent (Stent LAD and PTCA 2nd diag 06/2015, 01/2018) and Other (PPM/ICD- [employer] 12/2021, Cataracts brandon. 12/2023, laminectomy 10/2014, hemorrhoidectomy)
Dental History
Dr. Plummer at [facility]: Appt 03/10/2025
Family History
Mother: at Age and Cause of (heart failure)
Father: at Age and Cause of (ruptured AAA)
Social History
Alcohol: None
Drug: None
Tobacco: Non-Smoker
Personal:
Living: Alone
Employment: Retired (administrative assistant data entry)
Allergies
Allergy/AdvReac Type Severity Reaction Status Date / Time
lovastatin Allergy Unknown Rash Verified 03/06/25 07:45
enalapril maleate (From Allergy Rash Verified 03/06/25 07:45
Vasotec)
enalaprilat dihydrate (From Allergy Rash Verified 03/06/25 07:45
Vasotec)
meperidine HCl (From Demerol) Allergy swelling,redness Verified 03/06/25 07:45
at IV site
pollen extracts Allergy congestion Verified 03/06/25 07:45
Home Medications
�Medication �Instructions �Recorded �Confirmed �Type
ascorbic acid (vitamin C) 1,000 mg 1,000 mg PO DAILY Supplement 10/20/14 03/06/25 History
tablet (Vitamin C)
cholecalciferol (vitamin D3) 25 1,000 unit PO DAILY Supplement 10/20/14 03/06/25 History
mcg (1,000 unit) capsule (Vitamin
D3)
fluticasone propionate 50 2 spray intranasal DAILY Allergies 10/20/14 03/06/25 History
mcg/actuation nasal
spray,suspension
aspirin 81 mg tablet,delayed 81 mg PO HS Blood clot 06/15/15 03/06/25 History
release prevention/tx
pramipexole 0.25 mg tablet 0.25 mg PO HS Neurological 06/15/15 03/06/25 History
Condition
coenzyme Q10 100 mg capsule (Co 100 mg PO HS Supplement 06/25/15 03/06/25 History
Q-10)
atorvastatin 20 mg tablet 20 mg PO HS High cholesterol 12/22/21 03/06/25 History
biotin 1,000 mcg chewable tablet 1,000 mcg PO HS Supplement 12/22/21 03/06/25 History
cranberry fruit 1,000 mg capsule 1,000 mg PO HS Supplement 12/22/21 03/06/25 History
naproxen sodium 220 mg capsule 220 mg PO Q8H PRN PAIN 12/22/21 03/06/25 History
(Aleve)
nitroglycerin 0.4 mg sublingual 0.4 mg sublingual Q5-15M PRN CHEST 12/22/21 03/06/25 History
tablet PAIN
carvedilol 12.5 mg tablet (Coreg) 12.5 mg PO BID Blood pressure 01/13/22 03/06/25 History
empagliflozin 10 mg tablet 10 mg PO HS Diabetes 01/13/22 03/06/25 History
(Jardiance)
pantoprazole 40 mg tablet,delayed 40 mg PO DAILY Gastrointestinal 01/13/22 03/06/25 History
release issue
acetaminophen 325 mg tablet 650 mg PO Q4H PRN discomfort 03/06/25 03/06/25 History
amiodarone 200 mg tablet 200 mg PO DAILY 03/06/25 03/06/25 History
furosemide 80 mg tablet 80 mg PO BID #0 tabs 03/06/25 03/06/25 Rx
multivitamin 1 tab PO DAILY 03/06/25 03/06/25 History
valsartan 40 mg tablet 40 mg PO HS 03/06/25 03/06/25 History
STS%
STS %: 13.2%
Review of Systems
-
History Source: Patient
General: Reports Weight Gain and Fatigue
HEENT: Reports No Symptoms
Respiratory: Reports HARRELL; Denies Cough or PND
Cardiac: Reports Chest Pain ('dull ache'); Denies Palpitations, Diaphoresis or Edema
Abdomen/GI: Reports Reflux and Constipation
: Reports No Symptoms
Musculoskeletal: Reports Other (back pain)
Skin: Reports No Symptoms
Neurological: Reports No Symptoms; Denies CVA, TIA or Headaches
Vascular: Reports No Symptoms
Physical Exam
Vital Signs
Temp 97.2 F 03/06/25 08:35
Temp route: Temporal 03/06/25 08:35
Pulse 60 03/06/25 13:30
Resp Rate 17 03/06/25 13:30
Blood pressure 144/73 03/06/25 13:12
Blood pressure extremity used: Left upper arm 03/06/25 08:35
Position: Lying 03/06/25 08:35
MAP (cuff-Bj Monitor) 92 03/06/25 13:12
SaO2 98 03/06/25 13:30
Oxygen Mode of Delivery Room air 03/06/25 13:12
Can the patient verbally communicate their pain? Yes 03/06/25 13:12
Actual Weight 79.9 kg 03/06/25 07:39
Body Mass Index (BMI) 31.2 03/06/25 07:39
Labs
02/27/2025:
H/H: 13.3/43.1
BUN/Creat: 46/1.5
GFR: 33.73
Diagnostic Studies
11/21/2024 Echocardiogram:
SUMMARY
1. LV Wall Motion: basal and mid anterior septum, RCA distribution, and entire inferior septum are abnormal, as described below.
2. Left ventricular ejection fraction is severely reduced with an ejection fraction of 29 % by Licea's biplane method of discs.
3. Aortic valve area = 0.75 cm².
4. Calcified trileaflet Aortic valve. Moderate to severe aortic stenosis noted.
5. Moderate mitral regurgitation.
6. Right ventricular size and systolic function are within normal limits.

Transthoracic Echo procedure
A complete Transthoracic Echocardiogram was performed utilizing Two-Dimensional evaluation with color flow and spectral Doppler analysis.
PHYSICIAN INTERPRETATION
Left Ventricle:
Left ventricular cavity size is 5.70 cm which is mildly increased. There is global severely decreased left ventricular function. The left ventricular wall motion is diffusely hypokinetic. Stage II diastolic dysfunction suggestive of abnormal
relaxation and increased filling pressures.
LV Wall Scoring:
The basal and mid anterior septum is akinetic. The RCA distribution and entire
inferior septum are hypokinetic.
Right Ventricle:
Right ventricular size and systolic function are within normal limits. The right ventricular cavity size is within normal limits. The right ventricular systolic function is within normal limits. There is an ICD wire seen in the right heart.
Left Atrium:
Indexed left atrial volume is within normal range (15-34 ml/m2).
Right Atrium:
Right atrial size is normal.
Interatrial Septum:
There is no evidence of a patent foramen ovale.
Aortic Valve:
Doppler findings and restricted movement of the aortic valve cusps are consistent with moderate to severe aortic stenosis. Mild Aortic regurgitation. The peak aortic valve gradient is 24.8 mmHg. The mean aortic valve gradient is 13.0 mmHg. The
aortic valve area, calculated by the continuity equation, is 0.75 cm². Calcified trileaflet Aortic valve. Moderate to severe aortic stenosis noted.
Mitral Valve:
There is thickening of the anterior and posterior leaflets of the mitral valve. Mitral annular calcification. No evidence of Mitral valve stenosis. Mild to moderate Mitral valve regurgitation. Moderate mitral regurgitation.
Tricuspid Valve:
The tricuspid valve opens normally. Mild Tricuspid regurgitation. Estimated pulmonary artery pressure of 47 mmHg assuming a right atrial pressure of 3 mmHg.
Pulmonary Valve:
Mild pulmonary valve regurgitation. Pulmonic valve is not well visualized.
Aorta:
The aorta, from all segments that were visualized, appears normal in dimension, with no evidence of dilatation or obstruction.
Pericardium:
There is no evidence of pericardial effusion.

QUANTITATIVE DATA
Left Ventricle Measurements
Normal (Male) Normal (Female)
Internal Diam (Diastole) 5.70 cm 4.2 - 5.9 cm 3.9 - 5.3 cm
Internal Diam (Systole) 5.40 cm 2.3 - 4.7 cm 2.0 - 4.0 cm
IVS (Diastole) 0.70 cm 0.7 - 1.1 cm 0.6 - 1.0 cm
LVPW (Diastole) 1.40 cm 0.7 - 1.1 cm 0.6 - 1.0 cm
LVOT Diam 2.00 cm
Stroke Volume Index 23.9 ml/m²
Left Atrium Measurements
Volume Index 28.50 ml/m²
Aortic Valve Measurements
Valve Area 0.75 cm² AoV Mean Gradient 13.0 mmHg
AoV Peak Gradient 24.8 mmHg LVOT Mean Gradient 1.0 mmHg
LVOT Peak Gradient 1 mmHg AR Pressure half time 371 msec
Mitral Valve Measurements
Pressure half time 47.85 msec Valve Area Pressure half time 4.60 cm²
Effective HUSSAIN 4 mm² E/A Ratio 1.04
Mitral Tissue Doppler Lat 11.3 cm/s PISA Radius 0.30 cm
MV A Velocity 105.00 cm/s Mitral Tissue Doppler Med 4.7 cm/s
MV E Velocity 109.00 cm/s Deceleration time 165 msec
MV Haven Diam
Tricuspid Valve Measurements
Vmax 3.31 m/s
TR PA Systolic Pressure 43.8 mmHg
03/06/2025 Cardiac Cath:
HEMODYNAMICS : mmHg
RA (m) : 18
RV (s/d) : 48/11, 15
PA (s/d, m) : 46/24, 32
PCWP (m) : 34
AO (s/d, m) : 156/73, 107
LV (s/d) : 166/25
LVEDP : 30
Estimated Rick Cardiac Output: 3.2 L / min and Cardiac Index: 1.8 L/ min / m-2
AORTIC VALVE:
Mean gradient: 16 mmHg
JUAN: 0.91 cm2
CORONARY FINDINGS :
Dominance: Left
LEFT MAIN: Normal
LEFT ANTERIOR DESCENDING: The LAD arises normally from the left main and runs in the anterior interventricular groove. There is a stent in the midportion of the LAD that remains widely patent with a 40% stenosis just beyond the stented segment.
The remainder of the LAD is widely patent and the distal vessel wraps around the apex
CIRCUMFLEX: Large-caliber and dominant vessel supplying a large bifurcating OM1. OM1 bifurcates into 2 large daughter branches. The circumflex continues in the AV groove supplying a large posterolateral branch and terminating in a small PDA. Only
minor irregularities are present
RIGHT CORONARY ARTERY: The right coronary artery is a medium caliber nondominant vessel
VENTRICULOGRAPHY: Not done due to elevated creatinine
ABDOMINAL AORTOGRAPHY WITH ILIOFEMORAL RUNOFF: Abdominal aortography with iliofemoral runoff was performed with a 50: 50 mix of saline and IV contrast. The distal abdominal aorta was of normal caliber. The common iliac through common femoral
vessels are widely patent.
CONCLUSIONS
1. Elevated right and left ventricular filling pressures with significantly reduced LVEF consistent with known dilated cardiomyopathy
2. Stable coronary anatomy with widely patent mid LAD stent
3. Widely patent iliofemoral vessels
RECOMMENDATIONS
1. Increase furosemide from 80 mg daily to 80 mg p.o. twice daily
2. Renal profile in 1 to [address] scan angiogram of chest
4. Will discuss at upcoming valve clinic meeting
Exam
General: Well Developed, Well Nourished and No Apparent Distress
HEENT: Normocephalic, Moist Mucous Membranes and PERRLA
Neck: Trachea Midline
Respiratory: Clear; Negative Wheezes, Crackles or Rhonchi
Cardiac: S1/S2, Irregular Rhythm and Murmur (Grade I/ RAGHAVENDRA)
GI: Soft, Non Tender, Non Distended and Normal Bowel Sounds
Rectal: Deferred by Provider
Skin: Warm and Dry
Neuro: AO x 3 and Nonfocal/Grossly Intact
Extremities: Pulses (+2 pedal pulses); Negative Lower Level Edema
Psych: Calm
Assessment / Plan
-
Severe Aortic stenosis:
����������� Continue evaluation for aortic stenosis as outpatient
����������� BMP 03/12/2025
����������� CT TAVR Chest only scan with OID 03/20/2025 at [facility]
����������� CT surgery consult with Dr. Lam� 03/31/2025
����������� Dental Clearance � Dr. Plummer - appointment 03/10
����������� Structural Heart team discussion at [facility]
Acute on Chronic Heart failure with reduced EF
Lasix increased to 80mg BID by cardiology
Daily weights
Low sodium diet
BMP 03/13
Procedure Type:�Isolated AVR
Perioperative Outcome Estimate %
Operative Mortality 13.2%
Morbidity & Mortality 28.1%
Stroke 2.42%
Renal Failure 4.26%
Reoperation 4.49%
Prolonged Ventilation 17.9%
Deep Sternal Wound Infection 0.056%
Long Hospital Stay (>14 days) 13.8%
Short Hospital Stay (<6 days)* 13.4%
Data Reviewed
-
EKG: Report Reviewed by me
Supervisor Powdered Metal: Report Reviewed by me and Discussed with Physician
Echo: Report Reviewed by me, Discussed with Physician, Discussed with Patient and Discussed with Family
Labs: Labs Reviewed by me, Discussed with Physician, Discussed with Patient and Discussed with Family
Old Records: Reviewed (cardiology notes)
Total Time Spent with Patient (in minutes): 30
--- NOTE | 2025-03-06 13:52 | ITS.CL.CATH ---
Drug Abuse Program Coordinator - Catheterization
Cardiac Catheterization
Procedure Report:
RIGHT AND LEFT HEART STUDY
Date of Procedure: March 06, 2025
Referring: Dr. Audelia Cartagena
PROCEDURES:
1. Right heart catheterization
2. Left heart catheterization with coronary angiography
3. Abdominal aortography with iliofemoral runoff
INDICATION: Worsening shortness of breath, LV dysfunction and progressive aortic stenosis. The aortic valve looks very heavily calcified and thickened on echocardiographic image
ACCESS: Right radial artery, 6 Macedonian sheath in right common femoral vein, 6 Macedonian sheath
HEMODYNAMICS : mmHg
RA (m) : 18
RV (s/d) : 48/11, 15
PA (s/d, m) : 46/24, 32
PCWP (m) : 34
AO (s/d, m) : 156/73, 107
LV (s/d) : 166/25
LVEDP : 30
Estimated Rick Cardiac Output: 3.2 L / min and Cardiac Index: 1.8 L/ min / m-2
AORTIC VALVE:
Mean gradient: 16 mmHg
JUAN: 0.91 cm2
CORONARY FINDINGS :
Dominance: Left
LEFT MAIN: Normal
LEFT ANTERIOR DESCENDING: The LAD arises normally from the left main and runs in the anterior interventricular groove. There is a stent in the midportion of the LAD that remains widely patent with a 40% stenosis just beyond the stented segment.
The remainder of the LAD is widely patent and the distal vessel wraps around the apex
CIRCUMFLEX: Large-caliber and dominant vessel supplying a large bifurcating OM1. OM1 bifurcates into 2 large daughter branches. The circumflex continues in the AV groove supplying a large posterolateral branch and terminating in a small PDA. Only
minor irregularities are present
RIGHT CORONARY ARTERY: The right coronary artery is a medium caliber nondominant vessel
VENTRICULOGRAPHY: Not done due to elevated creatinine
ABDOMINAL AORTOGRAPHY WITH ILIOFEMORAL RUNOFF: Abdominal aortography with iliofemoral runoff was performed with a 50: 50 mix of saline and IV contrast. The distal abdominal aorta was of normal caliber. The common iliac through common femoral
vessels are widely patent.
SEDATION: 64 minutes of procedural sedation was utilized. An independent medical secretary receptionist was present to assist with and help manage the patient's level of consciousness and physiologic status
RADIATION SUMMARY: Fluoro Time (min): 10.1, Dose (mGy): 299, DAP (Gy.cm2) : 20.9
CONCLUSIONS
1. Elevated right and left ventricular filling pressures with significantly reduced LVEF consistent with known dilated cardiomyopathy
2. Stable coronary anatomy with widely patent mid LAD stent
3. Widely patent iliofemoral vessels
RECOMMENDATIONS
1. Increase furosemide from 80 mg daily to 80 mg p.o. twice daily
2. Renal profile in 1 to [address] scan angiogram of chest
4. Will discuss at upcoming valve clinic meeting
Copy to: Dr. Audelia Cartagena
== END 2025-03-06 15:10 | disposition home or self-care (01) ==
LOC: CATH 07:22
PROVIDERS: ATTENDING PHYSICIAN Internal Medicine Interventional Cardiology; FAMILY PHYSICIAN Internal Medicine Geriatric Medicine; OTHER PHYSICIAN Internal Medicine Cardiovascular Disease
DX: I25.10 Atherosclerotic heart disease of native coronary artery without angina pectoris (principal); I08.3 Combined rheumatic disorders of mitral, aortic and tricuspid valves; E78.00 Pure hypercholesterolemia, unspecified; I11.0 Hypertensive heart disease with heart failure; I50.23 Acute on chronic systolic (congestive) heart failure; I73.9 Peripheral vascular disease, unspecified; N28.9 Disorder of kidney and ureter, unspecified; Z79.899 Other long term (current) drug therapy; Z82.49 Family history of ischemic heart disease and other diseases of the circulatory system; Z86.11 Personal history of tuberculosis; Z88.5 Allergy status to narcotic agent; Z90.710 Acquired absence of both cervix and uterus; Z95.5 Presence of coronary angioplasty implant and graft; I42.0 Dilated cardiomyopathy
CPT/HCPCS: 93460; 99152; 99153; C1769; C1894; G0278; Q9967

== ENCOUNTER → 2025-03-13 14:33 | Outpatient (REF) | payer OTHER, SELFPAY ==
[2025-03-13 16:42] LABS: Blood Urea Nitrogen 64 mg/dl (7-17); Calcium 10.0 mg/dl (8.4-10.2); Carbon Dioxide 31 mmol/L (22-30); Chloride 99 mmol/L (98-107); Glucose 117 mg/dl (70-99); Potassium 4.3 mmol/L (3.5-5.1); Sodium 138 mmol/L (135-145); eGFR 23.88
== END ==
LOC: REG 14:33
PROVIDERS: ATTENDING PHYSICIAN Nurse Practitioner Adult Health; FAMILY PHYSICIAN Internal Medicine Geriatric Medicine
DX: I35.0 Nonrheumatic aortic (valve) stenosis (principal)
CPT/HCPCS: 36415; 80048

== ENCOUNTER → 2025-03-20 14:21 | Outpatient (REF) | payer OTHER, SELFPAY ==
[2025-03-20 16:13] LABS: Blood Urea Nitrogen 58 mg/dl (7-17); Calcium 10.3 mg/dl (8.4-10.2); Carbon Dioxide 31 mmol/L (22-30); Chloride 97 mmol/L (98-107); Glucose 122 mg/dl (70-99); Potassium 4.5 mmol/L (3.5-5.1); Sodium 134 mmol/L (135-145); eGFR 29.02
== END ==
LOC: REG 14:21
PROVIDERS: ATTENDING PHYSICIAN Nurse Practitioner Adult Health; FAMILY PHYSICIAN Internal Medicine Geriatric Medicine
DX: I35.0 Nonrheumatic aortic (valve) stenosis (principal)
CPT/HCPCS: 36415; 80048

== ENCOUNTER 2025-03-27 08:41 | Outpatient (RCR) | payer OTHER, SELFPAY ==
[2025-03-27 08:52] VITALS: BP 139/69
[2025-03-27] MEDS: NSS 500 IV (09:08)
== END 2025-04-15 23:59 | disposition home or self-care (01) ==
LOC: OID 08:41
PROVIDERS: ATTENDING PHYSICIAN Nurse Practitioner Adult Health
DX: I35.0 Nonrheumatic aortic (valve) stenosis (principal)
CPT/HCPCS: 96360

== ENCOUNTER → 2025-03-27 09:51 | Outpatient (REF) | payer OTHER, SELFPAY | LOC: RAD 09:51 | PROVIDERS: ATTENDING PHYSICIAN Nurse Practitioner Adult Health; FAMILY PHYSICIAN Internal Medicine Geriatric Medicine | DX: I35.0 Nonrheumatic aortic (valve) stenosis (principal) | CPT/HCPCS: 75572; Q9967 ==

== ENCOUNTER 2025-04-11 20:46 | Observation (INO) | payer OTHER, SELFPAY ==
[2025-04-11 16:14] VITALS: BP 103/62
--- NOTE | 2025-04-11 16:43 | ED.GENMED ---
History of Present Illness
<Boby Don PA-C - Last Filed: 04/11/25 21:05>
General
Chief Complaint: Cold/Flu/URI Symptoms
Time Seen by Provider: 04/11/25 16:25
History of Present Illness
History of Present Illness:
84-year-old female with history of CHF, CAD pacemaker, hypertension, department for evaluation of cough and wheezing for the past 4 to 5 days. She denies any fevers or bodyaches but feels general malaise. Denies any nausea, vomiting or diarrhea.
No ill contacts at home. Family concerned for severe weakness and inability to ambulate.
Past History
<Boby Don PA-C - Last Filed: 04/11/25 21:05>
Past History
ED Past Medical History: HTN, Hypercholesterolemia and Other (spinal stenosis)
ED Past Surgical History: Gynecological and Orthopedic
Patient has exhibited threatening behavior?: No
PSI?: No
Social History
Tobacco: Non-smoker
Alcohol: None
Drug: None
Personal:
Living: with family
Employment: Retired
Review of Systems
<Boby Don PA-C - Last Filed: 04/11/25 21:05>
Review of Systems
Allergies reviewed?: Yes
All Other Systems: ROS reviewed and negative except as documented in HPI and ROS
Phy Exam
<Boby Don PA-C - Last Filed: 04/11/25 21:05>
Physical Exam
Physical Exam:
GEN: Well appearing, NAD, WDWN
HEENT: Oral mucosa moist, no scleral icterus
Cardiac: Regular rate
Lung: No respiratory distress, no tachypnea, lungs clear to auscultation
MSK: No gross deformity or injuries
Skin: Good color, no pallor or jaundice, no rashes
Neuro: AO x3, moves all extremities freely
Psych: Calm, cooperative
Course
<Boby Don PA-C - Last Filed: 04/11/25 21:05>
Orders/Labs/Results
Orders:
Orders
04/11/25 16:42
CR Chest - 2 Views Urgent
Comment:
Reason For Exam: cough
04/11/25 16:48
Electrocardiogram (*1) Urgent
Reason for Study: Shortness of Breath
EKG- Treatment ONCE
04/11/25 17:18
COVID-19 Antigen Urgent
Source: Nasal Swab
Complete Blood Count/With Diff Urgent
Influenza A+B Rapid Molecular Urgent
MARCELLA Source: Nasal Swab
Specimen Description:
04/11/25 17:48
Comprehensive Metabolic Panel Urgent
NT-proBNP Urgent
Troponin I Urgent
04/11/25 18:30
0.9% Sodium Chloride 500 ml [Nss] 500 ml IV BOLUS
04/11/25 20:24
Admit/Transfer Patient As Directed
Co-Sign Provider:
Level of Care: Observation services
Assign to:: Medical/Surgical
Physician / Group: kane
Diagnosis: acute bronchitis influenza
Code Status As Directed
Resuscitation Status: Full Code
PRN Pain Medication Management As Directed
May give lesser potent ordered pain med per pt: Yes
preference::
Protocol:: Medication orders for pain may be administered in a
manner that supports deferring to patient preference
when the pt is:
- Requesting an ordered lesser potent pain medication.
Least to most potent pain medications are defined
as: acetaminophen < NSAID < tramadol < opioids
(morphine, oxycodone, hydromorphone).
- Requesting a lesser dose of the same medication IF
ORDERED.
- Requesting a less intrusive route of administration
if both routes are prescribed by the provider (PO <
IV).
04/11/25 20:42
Ipratropium/Albuterol Sulfate [Duoneb] 3 ml .ROUTE .STK-MED ONE
04/11/25 21:00
Guaifenesin [Mucinex] 600 mg PO Q12
04/12/25 08:00
Ipratropium/Albuterol Sulfate [Duoneb] 3 ml INH R QID
Abnormal Lab Results
04/11/25 04/11/25
17:18 17:48
RBC 4.03 L 10^6/uL
(4.20-5.40)
MCH 31.3 H pg
(27.0-31.0)
MCHC 32.9 L g/dL
(33.0-37.0)
Plt Count 114 L 10^3/uL
(130-400)
Absolute Lymphs (auto) 1.0 L 10^3/uL
(1.2-3.4)
Immature Gran % 0.6 H %
(0-0.5)
Lymphocytes % 19.1 L %
(20.5-51.1)
Monocytes % 11.3 H %
(1.7-9.3)
Sodium 134 L mmol/L
(135-145)
BUN 63 H mg/dl
(7-17)
Creatinine 2.0 H mg/dL
(0.6-1.0)
AST 304 H U/L
(14-36)
ALT 241 H U/L
(0-35)
04/11/25 17:18
04/11/25 17:48
Vital Signs
Initial and Last Documented VS:
Initial Vital Signs
Temp Pulse Resp Pulse Ox
97.6 F 73 19 96
04/11/25 16:12 04/11/25 16:12 04/11/25 16:12 04/11/25 16:12
Last Documented Vital Signs
Temp Pulse Resp BP Pulse Ox
97.6 F 73 19 103/62 93
04/11/25 16:12 04/11/25 16:12 04/11/25 16:12 04/11/25 16:14 04/11/25 17:24
<Manuel Adams, DO - Last Filed: 04/11/25 19:08>
Orders/Labs/Results
Orders:
Orders
04/11/25 16:42
CR Chest - 2 Views Urgent
Comment:
Reason For Exam: cough
04/11/25 16:48
Electrocardiogram (*1) Urgent
Reason for Study: Shortness of Breath
EKG- Treatment ONCE
04/11/25 17:18
COVID-19 Antigen Urgent
Source: Nasal Swab
Complete Blood Count/With Diff Urgent
Influenza A+B Rapid Molecular Urgent
MARCELLA Source: Nasal Swab
Specimen Description:
04/11/25 17:48
Comprehensive Metabolic Panel Urgent
NT-proBNP Urgent
Troponin I Urgent
04/11/25 18:30
0.9% Sodium Chloride 500 ml [Nss] 500 ml IV BOLUS
04/11/25 20:24
Admit/Transfer Patient As Directed
Co-Sign Provider:
Level of Care: Observation services
Assign to:: Medical/Surgical
Physician / Group: kane
Diagnosis: acute bronchitis influenza
Code Status As Directed
Resuscitation Status: Full Code
PRN Pain Medication Management As Directed
May give lesser potent ordered pain med per pt: Yes
preference::
Protocol:: Medication orders for pain may be administered in a
manner that supports deferring to patient preference
when the pt is:
- Requesting an ordered lesser potent pain medication.
Least to most potent pain medications are defined
as: acetaminophen < NSAID < tramadol < opioids
(morphine, oxycodone, hydromorphone).
- Requesting a lesser dose of the same medication IF
ORDERED.
- Requesting a less intrusive route of administration
if both routes are prescribed by the provider (PO <
IV).
04/11/25 20:42
Ipratropium/Albuterol Sulfate [Duoneb] 3 ml .ROUTE .STK-MED ONE
04/11/25 21:00
Guaifenesin [Mucinex] 600 mg PO Q12
04/12/25 08:00
Ipratropium/Albuterol Sulfate [Duoneb] 3 ml INH R QID
Abnormal Lab Results
04/11/25 04/11/25
17:18 17:48
RBC 4.03 L 10^6/uL
(4.20-5.40)
MCH 31.3 H pg
(27.0-31.0)
MCHC 32.9 L g/dL
(33.0-37.0)
Plt Count 114 L 10^3/uL
(130-400)
Absolute Lymphs (auto) 1.0 L 10^3/uL
(1.2-3.4)
Immature Gran % 0.6 H %
(0-0.5)
Lymphocytes % 19.1 L %
(20.5-51.1)
Monocytes % 11.3 H %
(1.7-9.3)
Sodium 134 L mmol/L
(135-145)
BUN 63 H mg/dl
(7-17)
Creatinine 2.0 H mg/dL
(0.6-1.0)
AST 304 H U/L
(14-36)
ALT 241 H U/L
(0-35)
04/11/25 17:18
04/11/25 17:48
Vital Signs
Initial and Last Documented VS:
Initial Vital Signs
Temp Pulse Resp Pulse Ox
97.6 F 73 19 96
04/11/25 16:12 04/11/25 16:12 04/11/25 16:12 04/11/25 16:12
Last Documented Vital Signs
Temp Pulse Resp BP Pulse Ox
97.6 F 73 19 103/62 93
04/11/25 16:12 04/11/25 16:12 04/11/25 16:12 04/11/25 16:14 04/11/25 17:24
<Boby Don PA-C - Last Filed: 04/11/25 21:05>
MDM/Problems Addressed
MDM/Problems Addressed:
Clinically the patient appears well with no hypoxemia or infiltrate on chest x-ray, she is profoundly weak and unable to ambulate thus patient will require admission for further management
<Boby Don PA-C - Last Filed: 04/11/25 21:05>
*Pulse Oximetry
SaO2: 96
Patient hypoxic: no
*Critical Care Note
Total Time (30-74mins, 75-104mins- exclusive of procedures): Not Applicable
ED Attending Note
<Boby Don PA-C - Last Filed: 04/11/25 21:05>
-
Portions of this chart may have been created with voice recognition software.� Occasional wrong word or��sound alike� substitutions may have occurred due to the inherent limitations of voice recognition software.
<Manuel Adams DO - Last Filed: 04/11/25 19:08>
ED Attending Note
Patient seen and examined by attending physician: Yes
I performed the substantive portion of visit, reviewed & personally made and approve the management plan that is documented in note by myself or DUSTY.: Yes
ED Attending Note:
I have seen and evaluated the patient with a [id number] encounter. I have spoken to the advance practicer provider and involved in the medical history, the physical exam, medical decision making.
Evaluation and management service: agree unless noted differently below.
Results interpretation: agree unless noted differently below.
Focused HPI: 84-year-old female presenting with generalized weakness over the past week. Symptoms occurred with viral syndrome. Patient found to be influenza positive. Patient has had falls due to the generalized weakness
Physical exam: Sitting in bed comfortably but weak and fatigued. No acute respiratory distress
Medical Decision Making: Given the profound weakness and her inability to ambulate due to it, we will admit for symptomatic care. She is out of the Tamiflu window
Discharge Plan
Departure
Patient Disposition: Admit
Date of Disposition: 04/11/25
Time of Disposition: 20:01
Admit to: Med/Surg
Presentation/result/management discussed w/ accepting MD/DO: Hospitalist
Discharge Problem:
Influenza, Generalized weakness
Interventions
Interventions:
*General Assessment Last Done: 04/11/25 16:14
*Neglect/Abuse Screening Last Done: 04/11/25 16:14
*ED COVID-19 Vaccine History Last Done: 04/11/25 16:14
*ED Influenza Vaccine History Last Done: 04/11/25 16:14
[facility] Risk Assessment Tool Last Done: 04/11/25 17:20
*Risk Screen - Suicide (C-SSRS) Last Done: 04/11/25 16:14
ED- Pulmonary Assessment Last Done: 04/11/25 20:20
[2025-04-11 17:20] VITALS: BMI 31.4
[2025-04-11 17:35] LABS: Hematocrit 38.3 % (37.0-47.0); Hemoglobin 12.6 g/dL (12.0-16.0); Mean Corp Hgb Conc. 32.9 g/dL (33.0-37.0); Mean Corpuscular Volume 95.0 fL (81.0-99.0); Nucleated Red Blood Cells % 0 %; Platelet Count 114 10^3/uL (130-400); Red Cell Dist. Width 14.2 % (11.5-14.5)
[2025-04-11 17:53] LABS: COVID-19 Antigen Negative (Negative)
[2025-04-11 18:17] LABS: ALT (SGPT) 241 U/L (0-35); AST (SGOT) 304 U/L (14-36); Albumin 3.7 g/dl (3.5-5.0); Alkaline Phosphatase 116 U/L (38-126); Blood Urea Nitrogen 63 mg/dl (7-17); Calcium 9.2 mg/dl (8.4-10.2); Carbon Dioxide 27 mmol/L (22-30); Chloride 100 mmol/L (98-107); Estimated Creatinine Clearance 20 ml/min; Glucose 95 mg/dl (70-99); Potassium 4.1 mmol/L (3.5-5.1); Sodium 134 mmol/L (135-145); Total Protein 6.4 g/dl (6.3-8.2); eGFR 23.88
[2025-04-11 18:22] LABS: Troponin I 0.023 ng/ml
[2025-04-11] MEDS: NSS 500 IV (18:45)
[2025-04-11 20:18] VITALS: BP 125/65
--- NOTE | 2025-04-11 20:26 | HPS.HSE ---
Family Physician
-
Family Physician: Kobe Rodriguez
Chief Complaint
-
cough
History of Present Illness
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
hyperlipidemia, CKD, chronic anemia, GERD, restless leg syndrome, lumbar spinal stenosis, presenting for productive cough and wheezing for the past 4 to 5 days. She has bodyaches. She initially had a sore throat. No fevers or chills. Has
generalized malaise. No nausea or vomiting or diarrhea. No sick contacts. She has severe weakness and inability to ambulate. She has been eating less and lost weight.
She does not smoke or drink alcohol.
Medical History
Past Medical History
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
hyperlipidemia, CKD, chronic anemia, GERD, restless leg syndrome, lumbar spinal stenosis)
Past Surgical History: Reports None
Social History
Tobacco: Non-smoker
Alcohol: None
Drug: None
Family History
Family History: Not pertinent
Allergies / Home Medications
Allergies reflects when Allergies were last updated in [employer].
Home Medications with original date entered in [employer]
Allergy/Medication List:
Allergies
Allergy/AdvReac Type Severity Reaction Status Date / Time
lovastatin Allergy Unknown Rash Verified 04/11/25 16:14
enalapril maleate (From Allergy Rash Verified 04/11/25 16:14
Vasotec)
enalaprilat dihydrate (From Allergy Rash Verified 04/11/25 16:14
Vasotec)
meperidine HCl (From Demerol) Allergy swelling,redness Verified 04/11/25 16:14
at IV site
pollen extracts Allergy congestion Verified 04/11/25 16:14
Home Medications
ascorbic acid (vitamin C) 1,000 mg tablet (Vitamin C) 1,000 mg PO DAILY Supplement 10/20/14
cholecalciferol (vitamin D3) 25 mcg (1,000 unit) capsule (Vitamin D3) 1,000 unit PO DAILY Supplement 10/20/14
fluticasone propionate 50 mcg/actuation nasal spray,suspension 2 spray intranasal DAILY Allergies 10/20/14
aspirin 81 mg tablet,delayed release 81 mg PO HS Blood clot prevention/tx 06/15/15
pramipexole 0.25 mg tablet 0.25 mg PO HS Neurological Condition 06/15/15
coenzyme Q10 100 mg capsule (Co Q-10) 100 mg PO HS Supplement 06/25/15
atorvastatin 20 mg tablet 20 mg PO HS High cholesterol 12/22/21
biotin 1,000 mcg chewable tablet 1,000 mcg PO HS Supplement 12/22/21
cranberry fruit 1,000 mg capsule 1,000 mg PO HS Supplement 12/22/21
naproxen sodium 220 mg capsule (Aleve) 220 mg PO Q8H PRN PAIN 12/22/21
nitroglycerin 0.4 mg sublingual tablet 0.4 mg sublingual Q5-15M PRN CHEST PAIN 12/22/21
carvedilol 12.5 mg tablet (Coreg) 12.5 mg PO BID Blood pressure 01/13/22
empagliflozin 10 mg tablet (Jardiance) 10 mg PO HS Diabetes 01/13/22
pantoprazole 40 mg tablet,delayed release 40 mg PO DAILY Gastrointestinal issue 01/13/22
acetaminophen 325 mg tablet 650 mg PO Q4H PRN discomfort 03/06/25
amiodarone 200 mg tablet 200 mg PO DAILY 03/06/25
furosemide 80 mg tablet 80 mg PO BID #0 tabs 03/06/25
multivitamin 1 tab PO DAILY 03/06/25
valsartan 40 mg tablet 40 mg PO HS 03/06/25
Review of Systems
-
History Source: Patient
A 12 point ROS was completed and negative except as noted: Yes
Constitutional: Reports No Symptoms
EENT: Reports No Symptoms
Respiratory: Reports See HPI
Cardiac: Reports No Symptoms
Abdomen/GI: Reports No Symptoms
: Reports No Symptoms
Musculoskeletal: Reports No Symptoms
Skin: Reports No Symptoms
Neurological: Reports No Symptoms
Endocrine: Reports No Symptoms
Hematologic/Lymphatic: Reports No Symptoms
Psych: Reports No Symptoms
Physical Exam
Vital Signs
Vital Signs
Temp Pulse Resp BP Pulse Ox
97.6 F 73 19 103/62 93
04/11/25 16:12 04/11/25 16:12 04/11/25 16:12 04/11/25 16:14 04/11/25 17:24
Physical Exam
General: Well Developed, Well Nourished and No Apparent Distress
HEENT: NormoCephalic, Moist mucous membranes and Atraumatic
Respiratory: Wheezes
Cardiac: S1/S2 and Regular Rhythm; No Murmur or Rub
GI: Soft, Non Tender, Non Distended and Normal Bowel Sounds; No Organomegaly
Rectal: Deferred by Provider
Musculoskeletal: No Clubbing, No Cyanosis and No Edema
Skin: No Rash
Neuro: Nonfocal/grossly intact
Laboratory Results
-
04/11/25 17:18
04/11/25 17:48
Laboratory Results
Total Bilirubin 0.9 mg/dl (0.2-1.3) 04/11/25 17:48
AST 304 U/L (14-36) H 04/11/25 17:48
ALT 241 U/L (0-35) H 04/11/25 17:48
Alkaline Phosphatase 116 U/L (38-126) 04/11/25 17:48
Troponin I 0.023 ng/ml 04/11/25 17:48
Data Reviewed
-
Lab Data: Labs Reviewed by me
Old Records: Reviewed
Impression/Plan
-
IMPRESSION:
PLAN:
# Weakness secondary to acute bronchitis secondary to influenza A infection
-Wheezing on examination
-Chest x-ray unremarkable
- Not hypoxemic
- Out of the window for Tamiflu
- IV fluids given, hold further fluids
- DuoNebs
- Mucinex
- PT OT
# VISHAL on CKD
- Creatinine of 2 from baseline of around 1.7
- IV fluids given, hold off on further fluids
- Hold valsartan and naproxen for now
# Transaminitis
- Possibly secondary to influenza although a bit higher than would be expected
- Continue to monitor
History of ventricular tachycardia
- Continue amiodarone
CAD status post stent
- Continue aspirin, statin
- Continue Coreg
Moderate aortic stenosis
Moderate mitral regurgitation
Chronic HFrEF
- Continue Lasix, Jardiance
History of intraventricular block status post permanent pacemaker
Essential hypertension
- Hold losartan
Hyperlipidemia
Chronic anemia
GERD
- Continue Protonix
Restless leg syndrome
- Continue pramipexole
Lumbar spinal stenosis
- Hold naproxen for now
Full code
DVT prophylaxis�heparin
Regular diet
[2025-04-11] MEDS: DUONEB 3 ML INH (20:42)
[2025-04-11] MEDS: MUCINEX 600 MG PO (20:42)
[2025-04-11 21:00] VITALS: BP 117/76
[2025-04-11 21:51] VITALS: BP 117/76
[2025-04-11 23:11] VITALS: BP 141/67; BMI 30.4
[2025-04-11 23:18] VITALS: BMI 30.4
[2025-04-12] MEDS: MIRAPEX 0.25 MG PO ×2 (01:35→20:31)
--- NOTE | 2025-04-12 04:53 | PTCARENOTE ---
PT admitted to room 2136 2 approx. 22:15. PT transferred from stretcher to bed with max assist. PT oriented to room, call reid . plan of care discussed. PT AAOX3 and participates fully in admission questions. Bed alarm plcaed for safety. Assessment
as documented.
[2025-04-12 07:56] VITALS: BP 100/52
--- NOTE | 2025-04-12 07:56 | W.PN.HOSP.TC ---
Today's Communication/Plan
-
monitor
Possible discharge tomorrow if remains stable/cont to improve
Assessment / Plan
Assessment / Plan
Physical Exam
General:no acute distress, appears comfortable at this time
HEENT: NormoCephalic, Moist mucous membranes and Atraumatic
Respiratory: clear to auscultation b/l
Cardiac: S1/S2 and Regular Rhythm; No Murmur or Rub
GI: Soft, Non Tender, Non Distended and Normal Bowel Sounds; No Organomegaly
Musculoskeletal: No Clubbing, No Cyanosis and No Edema
Skin: No Rash
Neuro: AOx3 conversant coherent
Psych: Calm
84F hx Vtach CAD stents MR HFrEF PPM HTN HLD CKD Spinal stenosis here for evaluation flu w/ associate fatigue/weakness/ambulatory dysfunction
# Weakness secondary to influenza A infection
#acute bronchitis
-reported wheezing since resolved
-Chest x-ray unremarkable
- Not hypoxemic
- Out of the window for Tamiflu
- IV fluids completed
- DuoNebs
- Mucinex
- PT OT appreciated home services
# VISHAL on CKD
- Creatinine of 2 from baseline of around 1.7
- IV fluids given, hold off on further fluids
- Hold valsartan and naproxen for now
# Transaminitis
- Possibly secondary to influenza although a bit higher than would be expected
- Continue to monitor
History of ventricular tachycardia
- Continue amiodarone
CAD status post stent
- Continue aspirin, statin
- Continue Coreg
Moderate aortic stenosis
Moderate mitral regurgitation
Chronic HFrEF
- Continue Lasix, Jardiance
History of intraventricular block status post permanent pacemaker
Essential hypertension
- Hold losartan
Hyperlipidemia
Chronic anemia
GERD
- Continue Protonix
Restless leg syndrome
- Continue pramipexole
Lumbar spinal stenosis
- Hold naproxen for now
Full code
DVT prophylaxis�heparin
Regular diet
Discussed with patient and patient's son Tree
Anticipated Discharge: Within 24 hours
Subjective/Interval History
-
Date of Service: April 12, 2025
no acute distress, appears comfortable sitting in chair. Stable respiratory status on room air. Endorses weakness/fatigue.
Objective Data
-
Labs:
Laboratory Results
04/12/25
06:00
WBC Pending
Hgb Pending
Hct Pending
Plt Count Pending
Sodium Pending
Potassium Pending
Chloride Pending
Carbon Dioxide Pending
BUN Pending
Creatinine Pending
Glucose Pending
Calcium Pending
Total Bilirubin Pending
AST Pending
ALT Pending
Alkaline Phosphatase Pending
Vital Signs:
Vital Signs
Temp Pulse Resp BP Pulse Ox
98.1 F 61 19 141/67 98
04/11/25 23:11 04/11/25 23:11 04/11/25 23:11 04/11/25 23:11 04/12/25 02:18
I&O
04/11/25 04/12/25 04/13/25
06:59 06:59 06:59
Intake Total 480 / 480
Balance 480 / 480
[2025-04-12] MEDS: PROTONIX 40 MG PO (08:07)
[2025-04-12] MEDS: TESSALON PERLES 100 MG PO ×3 (08:08→22:01)
[2025-04-12] MEDS: HEPARIN 5000 UNITS SC ×2 (08:08→20:25)
[2025-04-12] MEDS: MUCINEX 600 MG PO ×2 (08:08→20:24)
[2025-04-12] MEDS: PACERONE 200 MG PO (08:16)
[2025-04-12] MEDS: DUONEB 3 ML INH ×2 (11:19→15:27)
[2025-04-12 12:12] LABS: Hematocrit 38.0 % (37.0-47.0); Hemoglobin 12.4 g/dL (12.0-16.0); Mean Corp Hgb Conc. 32.6 g/dL (33.0-37.0); Mean Corpuscular Volume 95.0 fL (81.0-99.0); Nucleated Red Blood Cells % 0 %; Platelet Count 114 10^3/uL (130-400); Red Cell Dist. Width 14.1 % (11.5-14.5)
[2025-04-12 12:34] LABS: ALT (SGPT) 218 U/L (0-35); AST (SGOT) 229 U/L (14-36); Albumin 3.6 g/dl (3.5-5.0); Alkaline Phosphatase 116 U/L (38-126); Blood Urea Nitrogen 56 mg/dl (7-17); Calcium 9.3 mg/dl (8.4-10.2); Carbon Dioxide 24 mmol/L (22-30); Chloride 102 mmol/L (98-107); Estimated Creatinine Clearance 23 ml/min; Glucose 116 mg/dl (70-99); Potassium 4.0 mmol/L (3.5-5.1); Sodium 133 mmol/L (135-145); Total Protein 6.4 g/dl (6.3-8.2); eGFR 29.02
[2025-04-12 14:09] VITALS: BP 141/70; PULSE 59; O2SAT 96
[2025-04-12 14:14] VITALS: BP 141/70; PULSE 60; O2SAT 94
[2025-04-12 15:42] VITALS: BP 130/62
[2025-04-12] MEDS: LIPITOR 20 MG PO (20:23)
[2025-04-12] MEDS: ASPIR LOW (ENTERIC COATED) 81 MG PO (20:24)
[2025-04-12] MEDS: DUONEB INH (20:38)
[2025-04-12 23:25] VITALS: BP 124/52
[2025-04-13 04:28] VITALS: BMI 30.1
[2025-04-13 07:25] VITALS: BP 134/56
[2025-04-13] MEDS: PROTONIX 40 MG PO (08:17)
[2025-04-13] MEDS: PACERONE 200 MG PO (08:18)
[2025-04-13] MEDS: MUCINEX 600 MG PO ×2 (08:18→20:26)
[2025-04-13] MEDS: HEPARIN 5000 UNITS SC ×2 (08:20→20:26)
--- NOTE | 2025-04-13 09:08 | W.PN.HOSP.TC ---
Today's Communication/Plan
-
CXR
PT/OT re-eval
Acapella
resume coreg Lasix reduced doses d/t relatively low pressures and bradycardia
Assessment / Plan
Assessment / Plan
Physical Exam
General:no acute distress, appears comfortable at this time
HEENT: NormoCephalic, Moist mucous membranes and Atraumatic
Respiratory: clear to auscultation b/l
Cardiac: S1/S2 and Regular Rhythm; No Murmur or Rub
GI: Soft, Non Tender, Non Distended and Normal Bowel Sounds; No Organomegaly
Musculoskeletal: No Clubbing, No Cyanosis and No Edema
Skin: No Rash
Neuro: AOx3 conversant coherent
Psych: Calm
84F hx Vtach CAD stents MR HFrEF PPM HTN HLD CKD Spinal stenosis here for evaluation flu w/ associate fatigue/weakness/ambulatory dysfunction
# Weakness secondary to influenza A infection
#acute bronchitis
-reported wheezing since resolved
-Chest x-ray unremarkable, repeat CXR remains w/o acute abn's
- stable respiratory status on room air
- Out of the window for Tamiflu
- IV fluids completed
- DuoNebs
- Mucinex, prn Tessalon switched to prn Robitussin given concerns possible adverse sided effect diarrhea.
- PT OT re-eval requested
# VISHAL on CKD
- Creatinine of 2 improved to 1.4 likely baseline
- IV fluids given, hold off on further fluids
- cont hold valsartan naproxen
# Transaminitis
- Possibly secondary to influenza although a bit higher than would be expected
- Continue to monitor
History of ventricular tachycardia
- Continue amiodarone
- Coreg dose reduced d/t low pressures and bradycardia
CAD status post stent
- Continue aspirin, statin
- Continue Coreg dose reduced d/t low pressures and bradycardia
Moderate aortic stenosis
Moderate mitral regurgitation
Chronic HFrEF
- Continue Jardiance substituted w/ hospital formulary [facility]
- Lasix resumed at reduced dose 40 mg BID
-I/O daily weights
History of intraventricular block status post permanent pacemaker
Essential hypertension
- cont Hold losartan d/t VISAHL and low pressures
Hyperlipidemia
Chronic anemia
GERD
- Continue Protonix
Restless leg syndrome
- Continue pramipexole
Lumbar spinal stenosis
- Hold naproxen for now
Full code
DVT prophylaxis�heparin
Regular diet
Discussed with patient and patient's son Tree
I spent a total of 40 minutes with the patient or on the floor. More than 50% of this time involved counseling and coordination of care.
Anticipated Discharge: Within 24 hours
Subjective/Interval History
-
Date of Service: April 13, 2025
No acute distress, appears comfortable at this time, resting in bed. Reports increased sob, coughing, general malaise, fatigue, and diarrhea. Patient suspects diarrhea d/t Tessalon (started after medication was started).
Objective Data
-
Labs:
Laboratory Results
04/13/25
08:38
Sodium Pending
Potassium Pending
Chloride Pending
Carbon Dioxide Pending
BUN Pending
Creatinine Pending
Glucose Pending
Calcium Pending
Vital Signs:
Vital Signs
Temp Pulse Resp BP Pulse Ox
99.2 F 57 14 134/56 94
04/13/25 07:25 04/13/25 08:20 04/13/25 07:25 04/13/25 08:18 04/13/25 08:34
I&O
04/12/25 04/13/25 04/14/25
06:59 06:59 06:59
Intake Total 480 / 480 480 / 480
Balance 480 / 480 480 / 480
[2025-04-13 09:24] LABS: Blood Urea Nitrogen 46 mg/dl (7-17); Calcium 9.6 mg/dl (8.4-10.2); Carbon Dioxide 28 mmol/L (22-30); Chloride 103 mmol/L (98-107); Estimated Creatinine Clearance 28 ml/min; Glucose 95 mg/dl (70-99); Magnesium 2.6 mg/dl (1.6-2.3); Potassium 4.0 mmol/L (3.5-5.1); Sodium 135 mmol/L (135-145); eGFR 36.64
--- NOTE | 2025-04-13 13:29 | CM ---
CM met with pt and her victims advocate clerk/specialist bedside
Pt resides alone in a split-level home with 0STE and stairglides between floors
Pt is independent with her ADLs, utilizes a SPC or WW
She has a hosue glass cleaner for assistance
PCP- Jose Ramon Rodriguez
Rx- [facility]
VN recs by PT/OT
[facility] sent to [facility] lia[facility] per pt request
Pt is OBS- SLOAN verbally reviewed, copy provided
Discharge Disposition- home with [facility]
--- NOTE | 2025-04-13 13:57 | VNURNOTE ---
Home Health Liaison spoke with patient to discuss [facility] nurse/therapy, visits, schedule and homebound status. Patient is agreeable and understands that visits at home will be 2-3 x per week to assess and teach medical management.
Patient is aware that [facility] will contact them for start of care within a week after discharge from .
[facility] referral completed in [facility].
[2025-04-13] MEDS: TESSALON PERLES 100 MG PO (15:05)
[2025-04-13] MEDS: LASIX 40 MG PO (15:06)
[2025-04-13 15:20] VITALS: BP 135/56
[2025-04-13] MEDS: COREG 3.125 MG PO (20:27)
[2025-04-13] MEDS: ROBITUSSIN 200 MG PO (21:59)
[2025-04-13] MEDS: LIPITOR 20 MG PO (21:59)
[2025-04-13] MEDS: ASPIR LOW (ENTERIC COATED) 81 MG PO (21:59)
[2025-04-13] MEDS: FARXIGA 10 MG PO (21:59)
[2025-04-13] MEDS: MIRAPEX 0.25 MG PO (21:59)
[2025-04-13 23:07] VITALS: BP 127/58
--- NOTE | 2025-04-14 07:14 | W.PN.HOSP.TC ---
Today's Communication/Plan
-
discharge
Assessment / Plan
Assessment / Plan
Physical Exam
General:no acute distress, appears comfortable at this time
HEENT: NormoCephalic, Moist mucous membranes and Atraumatic
Respiratory: clear to auscultation b/l
Cardiac: S1/S2 and Regular Rhythm; No Murmur or Rub
GI: Soft, Non Tender, Non Distended and Normal Bowel Sounds; No Organomegaly
Musculoskeletal: No Clubbing, No Cyanosis and No Edema
Skin: No Rash
Neuro: AOx3 conversant coherent
Psych: Calm
84F hx Vtach CAD stents MR HFrEF PPM HTN HLD CKD Spinal stenosis here for evaluation flu w/ associate fatigue/weakness/ambulatory dysfunction
# Weakness secondary to influenza A infection
#acute bronchitis
-reported wheezing since resolved
-Chest x-ray unremarkable, repeat CXR remains w/o acute abn's
- stable respiratory status on room air
- Out of the window for Tamiflu
- IV fluids completed
- DuoNebs
- Mucinex, prn Tessalon switched to prn Robitussin given concerns possible adverse sided effect diarrhea.
- PT OT appreciated home services
# VISHAL on CKD
- Creatinine of 2 improved to 1.4 likely baseline
- IV fluids given, hold off on further fluids
- VISHAL resolved
- ok to resume valsartan naproxen on discharge
# Transaminitis
- Lkely 2/2 flu, resolving
- repeat labwork outpt with primary recommended.
History of ventricular tachycardia
- Continue amiodarone
- Coreg dose reduced d/t low pressures and bradycardia, tolerating
CAD status post stent
- Continue aspirin, statin
- Continue Coreg dose reduced d/t low pressures and bradycardia
Moderate aortic stenosis
Moderate mitral regurgitation
Chronic HFrEF
- Continue Jardiance substituted w/ hospital formulary Farxiga
- Lasix resumed at reduced dose 40 mg BID, tolerating, ok to resume home dose 80 mg BID on discharge
-I/O daily weights
History of intraventricular block status post permanent pacemaker
Essential hypertension
- cont coreg Lasix as above
-ok to resume valsartan on discharge
Hyperlipidemia
Chronic anemia
GERD
- Continue Protonix
Restless leg syndrome
- Continue pramipexole
Lumbar spinal stenosis
- ok to resume naproxen on discharge
Full code
DVT prophylaxis�heparin
Regular diet
Medically stable for discharge home services with outpatient follow up recommendations.
Discussed with patient and patient's son Tree
Total Time Preparing Discharge __40 minutes including examination of the patient, summary of the hospital stay, instructions for continuing care to all relevant caregivers; and preparation of discharge records, prescriptions, and referral
forms if necessary.
Anticipated Discharge: Today
Subjective/Interval History
-
Date of Service: April 14, 2025
seen and examined at bedside in no acute distress. Overall reports feeling well. SOB weakness improved. Last diarrhea episode yesterday, none today. Looking forward to going home. Son Tree present during evaluation.
Objective Data
-
Labs:
Laboratory Results
04/14/25
06:00
Sodium Pending
Potassium Pending
Chloride Pending
Carbon Dioxide Pending
BUN Pending
Creatinine Pending
Glucose Pending
Calcium Pending
Vital Signs:
Vital Signs
Temp Pulse Resp BP Pulse Ox
99.5 F 60 16 127/58 90
04/13/25 23:07 04/13/25 23:07 04/13/25 23:07 04/13/25 23:07 04/13/25 23:07
I&O
04/13/25 04/14/25 04/15/25
06:59 06:59 06:59
Intake Total 480 / 480 1380 / 1380
Balance 480 / 480 1380 / 1380
[2025-04-14 07:28] VITALS: BP 129/54
[2025-04-14] MEDS: PROTONIX 40 MG PO (08:13)
[2025-04-14] MEDS: PACERONE 200 MG PO (08:13)
[2025-04-14] MEDS: MUCINEX 600 MG PO (08:14)
[2025-04-14] MEDS: LASIX 40 MG PO ×2 (08:14→16:01)
[2025-04-14] MEDS: HEPARIN 5000 UNITS SC (08:14)
[2025-04-14] MEDS: COREG 3.125 MG PO (08:14)
[2025-04-14] MEDS: ROBITUSSIN 200 MG PO ×2 (08:19→16:01)
[2025-04-14 09:38] LABS: Blood Urea Nitrogen 37 mg/dl (7-17); Calcium 9.4 mg/dl (8.4-10.2); Carbon Dioxide 27 mmol/L (22-30); Chloride 103 mmol/L (98-107); Estimated Creatinine Clearance 30 ml/min; Glucose 88 mg/dl (70-99); Magnesium 2.3 mg/dl (1.6-2.3); Potassium 3.9 mmol/L (3.5-5.1); Sodium 136 mmol/L (135-145); eGFR 40.05
[2025-04-14 11:15] VITALS: BP 116/55; PULSE 78; O2SAT 94
--- NOTE | 2025-04-14 13:07 | CM ---
CM reviewed chart and met with pt bedside
Pt accepted for SOC with [facility] and she is in agreement with plan
Son will transport home on chart
VN order on chart
[facility] liaison aware of plan
Discharge Disposition- home with [facility], son transport
[2025-04-14 15:15] VITALS: BP 131/63
--- NOTE | 2025-04-14 16:09 | W.DCSUMMARY ---
Discharge Summary
Discharge Data
Date of Admission: 04/11/25
Date of Discharge: 04/14/25
-
Pending Results: Yes
Additional Pending Results:
respiratory culture
Discharge Plan
-
Patient Disposition: Home with Home Care
Discharge Diagnosis/Procedures: Flu
Acute on Chronic Kidney Disease stage III
Liver Injury Secondary to Flu
Bradycardia
Borderline Hypotension
Condition: Fair
Diet: Low Cholesterol and 2 Gram Sodium
Activity: With assistance, As tolerated and With Walker
Driving Restrictions: Not until seen by your Dr
Bathing Restrictions: None
Blood Work: Repeat CMP with primary care provider in 1 week of discharge
Other Services: PT and OT
Activity Restrictions/Additional Instructions:
Follow up with primary care provider in 1 week of discharge and Cardiology in 2-4 weeks of discharge.
Coreg reduced to 3.125 mg twice a day due to bradycardia and borderline Hypotension.
Keep a log of your pressures and heart rate at home, twice a day, to review with your primary care provider and events intern in follow up.
Please take medications as prescribed/recommended and follow up with primary care provider Cardiology and/or other healthcare provider involved in your care for refills and/or further adjustment to your medication regimen as necessary.
Referrals:
Kobe Rodriguez MD [Family Provider, Internal Medicine] - in one week
Audelia Cartagena MD [Active, Cardiology] - in two to four weeks
Prescriptions:
New
carvedilol 3.125 mg Tablet
3.125 mg PO BID Qty: 60 0RF
Continued
ascorbic acid (vitamin C) [Vitamin C] 1,000 MG tablet
1,000 mg PO DAILY
fluticasone propionate 1 SPRAY spray,suspension
2 spray intranasal DAILY
cholecalciferol (vitamin D3) [Vitamin D3] 1,000 UNIT capsule
1,000 unit PO DAILY
aspirin 81 MG tablet,delayed release (DR/EC)
81 mg PO HS
pramipexole 0.25 MG tablet
0.25 mg PO HS
coenzyme Q10 [Co Q-10] 100 MG capsule
100 mg PO HS
atorvastatin 20 mg Tablet
20 mg PO HS
cranberry fruit 1,000 mg Capsule
1,000 mg PO HS
nitroglycerin 0.4 mg Tablet, Sublingual
0.4 mg SUBLINGUAL Q5-15M PRN (Reason: CHEST PAIN)
naproxen sodium [Aleve] 220 mg Capsule
220 mg PO Q8H PRN (Reason: PAIN)
biotin 1,000 mcg Tablet,Chewable
1,000 mcg PO HS
pantoprazole 40 MG tablet,delayed release (DR/EC)
40 mg PO DAILY
Jardiance 10 mg tablet
10 mg PO HS
multivitamin Tablet
1 tab PO DAILY
valsartan 40 mg Tablet
40 mg PO HS
acetaminophen 325 mg Tablet
650 mg PO Q4H PRN (Reason: discomfort)
amiodarone 200 mg tablet
200 mg PO DAILY
furosemide 80 mg tablet
80 mg PO BID
Discontinued
carvedilol [Coreg] 12.5 mg tablet
12.5 mg PO BID
Discharge Orders:
Discharge Patient (As Directed); Ordered 04/14/25
Ordered By: Rashid Tucker
Discharge Date and Time
Print Language: CHILEAN
== END 2025-04-14 16:50 | disposition home health service (06) ==
LOC: 2 NORTH 20:46
PROVIDERS: Physician Assistant; ADMITTING PHYSICIAN Hospitalist; ATTENDING PHYSICIAN Internal Medicine; EMERGENCY PHYSICIAN Student in an Organized Health Care Education/Training Program; FAMILY PHYSICIAN Internal Medicine Geriatric Medicine
DX: J10.1 Influenza due to other identified influenza virus with other respiratory manifestations (principal); J10.2 Influenza due to other identified influenza virus with gastrointestinal manifestations; R53.81 Other malaise; N17.9 Acute kidney failure, unspecified; J20.9 Acute bronchitis, unspecified; R00.1 Bradycardia, unspecified; R53.1 Weakness; R53.83 Other fatigue; E78.00 Pure hypercholesterolemia, unspecified; I25.10 Atherosclerotic heart disease of native coronary artery without angina pectoris; N18.9 Chronic kidney disease, unspecified; I13.0 Hypertensive heart and chronic kidney disease with heart failure and stage 1 through stage 4 chronic kidney disease, or unspecified chronic kidney disease; R63.4 Abnormal weight loss; I08.0 Rheumatic disorders of both mitral and aortic valves; M48.061 Spinal stenosis, lumbar region without neurogenic claudication; I50.22 Chronic systolic (congestive) heart failure; G25.81 Restless legs syndrome; K21.9 Gastro-esophageal reflux disease without esophagitis; D63.1 Anemia in chronic kidney disease; R74.01 Elevation of levels of liver transaminase levels; I49.1 Atrial premature depolarization; I49.3 Ventricular premature depolarization; R26.9 Unspecified abnormalities of gait and mobility; Z11.52 Encounter for screening for COVID-19; Z95.0 Presence of cardiac pacemaker; Z91.81 History of falling; Z86.79 Personal history of other diseases of the circulatory system; Z95.5 Presence of coronary angioplasty implant and graft; Z88.8 Allergy status to other drugs, medicaments and biological substances; Z79.84 Long term (current) use of oral hypoglycemic drugs; Z79.82 Long term (current) use of aspirin; Z79.899 Other long term (current) drug therapy; Z88.5 Allergy status to narcotic agent
CPT/HCPCS: 71045; 71046; 80048; 80053; 83735; 83880; 84100; 84484; 85025; 87070; 87077; 87205; 87502; 87811; 93005; 94640; 96360; 97116; 97162; 97167; 99285; G0378